=== PATIENT | female | born 1940 | race Caucasian/White ===

== ENCOUNTER 2018-07-03 14:17 | Emergency (ER) | payer MEDICARE ==
[~2018-07-03] VITALS: Ht 165.1 cm; Wt 75.0 kg
[2018-07-03 14:18] VITALS: BP 172/76
[2018-07-03] MEDS ORDERED: CLON0.5T8 PO (14:28)
[2018-07-03] MEDS ORDERED: APAP325T4 PO (14:28)
[2018-07-03] MEDS ORDERED: PARO40TA2 PO (14:28)
[2018-07-03] MEDS ORDERED: METF-839 PO (14:28)
[2018-07-03] MEDS ORDERED: HYDR25TAB PO (14:28)
[2018-07-03] MEDS ORDERED: GLIM2TAB PO (14:28)
[2018-07-03] MEDS ORDERED: ASPI81TA85 PO (14:29)
--- NOTE | 2018-07-03 15:01 | REP ---
NASAL BONES, FOUR VIEWS: HISTORY: Trauma. There is no acute fracture or bone lesion. The sinuses are clear. IMPRESSION: There is no acute fracture or bone lesion. Electronically Signed by Jovanni Flanagan MD 07/03/2018 03:06 P
== END 2018-07-03 15:57 | disposition home or self-care (01) ==
LOC: M ED 14:17
DX: S00.33XA Contusion of nose, initial encounter (principal); W01.198A Fall on same level from slipping, tripping and stumbling with subsequent striking against other object, initial encounter; Y92.410 Unspecified street and highway as the place of occurrence of the external cause; Y93.9 Activity, unspecified; Y99.8 Other external cause status; R26.89 Other abnormalities of gait and mobility; I10 Essential (primary) hypertension; E11.9 Type 2 diabetes mellitus without complications; F32.9 Major depressive disorder, single episode, unspecified; F17.210 Nicotine dependence, cigarettes, uncomplicated; Z85.3 Personal history of malignant neoplasm of breast; Z88.2 Allergy status to sulfonamides; Z79.899 Other long term (current) drug therapy; Z79.82 Long term (current) use of aspirin

== ENCOUNTER → 2018-12-09 | Outpatient (CLI) | payer MEDICARE ==
[~2018-12-09] MED LIST: APAP325T4 PO; ASPI81TA85 PO; CLON0.5T8 PO; GLIM2TAB PO; HYDR25TAB PO; METF-839 PO; PARO40TA2 PO
--- NOTE | 2018-12-09 15:12 | REP ---
Clinical: Back pain. Technique: AP, lateral, bilateral oblique and coned-down views of the lumbosacral spine. Findings: Advanced multilevel degenerative disc osteophyte complex is appreciated throughout the visualized lower thoracic and lumbosacral spine. Findings include bridging osteophytes, endplate sclerosis, disc space narrowing, and hypertrophic facet changes. No acute fracture / compression injury or subluxation. Impression: Advanced multilevel degenerative spondylosis. Electronically Signed by Dennis Bhandari MD 12/09/2018 03:04 P
== END ==
LOC: M WUC 14:09
PROVIDERS: ATTEND Nurse Practitioner Family
DX: M54.5 Low back pain (principal)

== ENCOUNTER → 2018-12-19 | Outpatient (REF) | payer MEDICARE ==
[2018-12-19 17:48] LABS: BASO % 0.3 % (0.0-1.0); EOS # 0.1 10^3/uL (0.0-0.50); EOS % 0.7 % (0.0-3.0); HEMATOCRIT 41.2 % (36.0-47.0); HEMOGLOBIN 13.6 g/dl (12.0-15.5); LYMPH # 2.5 10^3/uL (1.5-4.5); LYMPH % 32.7 % (24.0-44.0); MEAN CORPUSCULAR HEMOGLOBIN 31.2 pg (27.0-33.0); MEAN CORPUSCULAR VOLUME 94.5 fl (80.0-96.0); MONO # 0.5 10^3/uL (0.0-0.8); MONO % 7.1 % (0.0-5.0); NEUTROPHILS # 4.5 10^3/uL (1.8-7.7); NEUTROPHILS % 59.1 % (36.0-66.0); PLATELET COUNT, AUTOMATED 244 10^3/uL (150-450); RED BLOOD COUNT 4.36 10^6/uL (4.00-5.40); WHITE BLOOD COUNT 7.7 10^3/uL (4.0-10.0)
[2018-12-19 17:49] LABS: ALT/SGPT 15 U/L (12-78); BILIRUBIN,TOTAL 0.2 MG/DL (0.2-1.0); BLOOD UREA NITROGEN 11 MG/DL (7-18); CALCIUM LEVEL 9.2 MG/DL (8.8-10.2); CARBON DIOXIDE LEVEL 30 MEQ/L (21-32); CHLORIDE LEVEL 100 MEQ/L (98-107); CHOLESTEROL LEVEL 216 MG/DL (<200); CHOLESTEROL RISK RATIO 3.724 (<5); GLOMERULAR FILTRATION RATE > 60.0 (>39); GLUCOSE, FASTING 75 MG/DL (70-100); HDL CHOLESTEROL 58 MG/DL (>40); LDL CHOLESTEROL 133 MG/DL (<100); NON-HDL-C 158 MG/DL; POTASSIUM SERUM 3.7 MEQ/L (3.5-5.1); SODIUM LEVEL 136 MEQ/L (136-145); TOTAL PROTEIN 6.7 GM/DL (6.4-8.2); TRIGLYCERIDES LEVEL 125 MG/DL (<150)
[2018-12-19 18:42] LABS: HEMOGLOBIN A1c 6.1 %
== END ==
LOC: M LABDRAW1 16:49
PROVIDERS: ATTEND Nurse Practitioner Family
DX: E78.5 Hyperlipidemia, unspecified (principal); I10 Essential (primary) hypertension

== ENCOUNTER 2019-01-05 20:37 | Emergency (ER) | payer MEDICARE ==
[~2019-01-05] VITALS: Ht 165.1 cm; Wt 72.7 kg
[2019-01-05 22:07] LABS: BASO % 0.1 % (0.0-1.0); EOS % 0.1 % (0.0-3.0); HEMATOCRIT 39.9 % (36.0-47.0); HEMOGLOBIN 13.4 g/dl (12.0-15.5); LYMPH # 1.1 10^3/uL (1.5-4.5); LYMPH % 8.2 % (24.0-44.0); MEAN CORPUSCULAR HEMOGLOBIN 31.5 pg (27.0-33.0); MEAN CORPUSCULAR HGB CONC 33.6 g/dl (32.0-36.5); MEAN CORPUSCULAR VOLUME 93.9 fl (80.0-96.0); MONO # 1.2 10^3/uL (0.0-0.8); MONO % 8.6 % (0.0-5.0); NEUTROPHILS # 11.4 10^3/uL (1.8-7.7); NEUTROPHILS % 82.6 % (36.0-66.0); PLATELET COUNT, AUTOMATED 212 10^3/uL (150-450); RED BLOOD COUNT 4.25 10^6/uL (4.00-5.40); WHITE BLOOD COUNT 13.8 10^3/uL (4.0-10.0)
[2019-01-05 22:31] LABS: BLOOD UREA NITROGEN 16 MG/DL (7-18); CALCIUM LEVEL 9.3 MG/DL (8.8-10.2); CARBON DIOXIDE LEVEL 31 MEQ/L (21-32); CHLORIDE LEVEL 101 MEQ/L (98-107); CREATININE FOR GFR 0.64 MG/DL (0.55-1.30); GLOMERULAR FILTRATION RATE > 60.0 (>39); GLUCOSE, FASTING 149 MG/DL (70-100); POTASSIUM SERUM 3.5 MEQ/L (3.5-5.1); SODIUM LEVEL 138 MEQ/L (136-145)
[2019-01-05] MEDS ORDERED: ATOR1TAB21 PO (22:37)
[2019-01-05 23:13] LABS: CK-MB VALUE MASS < 1.0 NG/ML (<3.6); CPK CREATINE PHOSPHOKINASE 37 U/L (26-192); TROPONIN I < 0.02 NG/ML (< 0.10)
[2019-01-05] MEDS ORDERED: DEBR6.5S4 OTIC (23:49)
[2019-01-05] MEDS ORDERED: MACR100C43 PO (23:49)
[2019-01-06] MEDS ORDERED: NITROFURANTOIN (MACROBID) 100 MG CAP PO ONE
[2019-01-06 00:26] VITALS: BP 150/70
--- NOTE | 2019-01-06 08:09 | ECGEPIP ---
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
== END 2019-01-06 00:05 | disposition home or self-care (01) ==
LOC: M ED 20:37
DX: F41.0 Panic disorder [episodic paroxysmal anxiety] (principal); N39.0 Urinary tract infection, site not specified; H61.22 Impacted cerumen, left ear; F41.1 Generalized anxiety disorder; Z72.0 Tobacco use; Z79.82 Long term (current) use of aspirin; Z79.84 Long term (current) use of oral hypoglycemic drugs; Z79.899 Other long term (current) drug therapy; Z88.2 Allergy status to sulfonamides

== ENCOUNTER → 2019-09-24 | Outpatient (CLI) | payer MEDICARE ==
[~2019-09-24] MED LIST changes: +ATOR1TAB21 PO; +CLON0.5T2 PO; -CLON0.5T8 PO; +DEBR6.5S4 OTIC; -GLIM2TAB PO; +GLIM2TAB4 PO; +MACR100C43 PO
--- NOTE | 2019-09-24 15:43 | REPPI ---
LUMBOSACRAL SPINE, FIVE VIEWS: Five views of the lumbosacral spine are performed. No compression fracture or malalignment is seen. The lateral view is somewhat limited due to mild obliquity. There is moderate diffuse spurring. There is moderate diffuse disc space narrowing and subchondral sclerosis. There is sclerosis and spurring at the posterior facet joints diffusely. Posterior elements appear intact. IMPRESSION: Moderate diffuse degenerative changes with no definite fracture or dislocation. No change since the prior study of 12/09/2018. Electronically Signed by Norbert Naik MD 09/24/2019 04:15 P
== END ==
LOC: M PLAIMG 14:56
PROVIDERS: ATTEND Physician Assistant
DX: M51.37 Other intervertebral disc degeneration, lumbosacral region (principal); M25.78 Osteophyte, vertebrae; E11.9 Type 2 diabetes mellitus without complications
CPT/HCPCS: 72110; G0463

== ENCOUNTER → 2019-09-24 | Outpatient (REF) | payer MEDICARE | LOC: M SFHCPLAZ 14:47 | PROVIDERS: ATTEND Physician Assistant | DX: E11.9 Type 2 diabetes mellitus without complications (principal) ==

== ENCOUNTER → 2019-12-29 | Outpatient (REF) | payer MEDICARE ==
[~2019-12-29] MED LIST changes: -ASPI81TA85 PO; +ASPI81TA86 PO
[2020-02-15 21:58] LABS: HEMATOCRIT 43.9 % (36.0-47.0); HEMOGLOBIN 14.1 g/dl (12.0-15.5); MEAN CORPUSCULAR HEMOGLOBIN 30.9 pg (27.0-33.0); MEAN CORPUSCULAR HGB CONC 32.1 g/dl (32.0-36.5); MEAN CORPUSCULAR VOLUME 96.3 fl (80.0-96.0); PLATELET COUNT, AUTOMATED 261 10^3/uL (150-450); RED BLOOD COUNT 4.56 10^6/uL (4.00-5.40); WHITE BLOOD COUNT 9.4 10^3/uL (4.0-10.0)
[2020-02-22 04:54] LABS: BLOOD UREA NITROGEN 12 MG/DL (7-18); CALCIUM LEVEL 9.5 MG/DL (8.8-10.2); CARBON DIOXIDE LEVEL 31 MEQ/L (21-32); CHLORIDE LEVEL 101 MEQ/L (98-107); CREATININE FOR GFR 0.53 MG/DL (0.55-1.30); FREE T4 0.87 NG/DL (0.76-1.46); GLOMERULAR FILTRATION RATE > 60.0 (>39); GLUCOSE, FASTING 60 MG/DL (70-100); SODIUM LEVEL 138 MEQ/L (136-145); VITAMIN B12 LEVEL 298 PG/ML (247-911)
== END ==
LOC: M LABSMT 13:06
PROVIDERS: ATTEND Physician Assistant
DX: R41.3 Other amnesia (principal); E11.9 Type 2 diabetes mellitus without complications

== ENCOUNTER → 2020-06-10 | Outpatient (CLI) | payer MEDICARE ==
[~2020-06-10] MED LIST changes: +BUSP1TAB PO; +DONE10TA90 PO; +HYDR-3490 PO; -HYDR25TAB PO; +OMEP40CA97 PO; +PARO10TA3 PO; +ZOFR4TAB16 PO
[2020-06-10 14:42] LABS: THYROID STIMULATING HORMONE 4.06 uIU/ML (0.358-3.740)
[2020-06-10 14:43] LABS: FOLATE 10.7 NG/ML
[2020-06-18 14:09] LABS: VITAMIN B1 LEVEL WHOLE BLOOD 136.5 nmol/L (66.5-200.0); VITAMIN B6,PYRIDOXAL PHOSPHATE 7.5 ug/L (2.0-32.8); VITAMIN E(ALPHA TOCOPHEROL) 6.1 mg/L (9.0-29.0); VITAMIN E(GAMMA TOCOPHEROL) 0.8 mg/L (0.5-4.9)
== END ==
LOC: M PLALAB 12:02
PROVIDERS: ATTEND Psychiatry & Neurology Neurology
DX: D51.9 Vitamin B12 deficiency anemia, unspecified (principal); E03.9 Hypothyroidism, unspecified

== ENCOUNTER 2020-06-19 18:58 | Emergency (ER) | payer MEDICARE ==
[~2020-06-19] VITALS: Ht 165.1 cm; Wt 62.1 kg
[~2020-06-19 18:58] MED LIST changes: -BUSP1TAB PO; -DONE10TA90 PO; -OMEP40CA97 PO; -PARO10TA3 PO; -ZOFR4TAB16 PO
[2020-06-19] MEDS ORDERED: ZOFR4TAB16 PO (19:18)
[2020-06-19] MEDS ORDERED: PARO10TA3 PO (19:18)
[2020-06-19] MEDS ORDERED: BUSP1TAB PO (19:20)
[2020-06-19] MEDS ORDERED: DONE10TA90 PO (19:20)
[2020-06-19] MEDS ORDERED: PANTOPRAZOLE 40MG VIAL (C9113 PER 1) IV ONE (19:45)
[2020-06-19] MEDS ORDERED: NS 1,000 ML IV ONE (19:45)
[2020-06-19] MEDS ORDERED: METAL LOCK LOOP XX ONE (19:52)
--- NOTE | 2020-06-19 20:48 | REPVR ---
PROCEDURE INFORMATION: Exam: XR Chest, 1 View Exam date and time: 06/19/2020 8:21 PM Age: 80 years old Clinical indication: Cough TECHNIQUE: Imaging protocol: XR of the chest Views: 1 view. COMPARISON: No relevant prior studies available. FINDINGS: Lungs: Degree of lung inflation is normal. No evidence of pulmonary edema. No focal consolidation or parenchymal lung mass. Pleural spaces: No pleural effusion or pneumothorax. Heart/Mediastinum: Cardiac silhouette appears normal. No adenopathy or hilar mass. Bones/joints: Osseous structures show no concerning abnormality. Multi-level, age-related thoracic degenerative disc disease is present. Soft tissues: Left axillary surgical clips are present. IMPRESSION: No acute or focal cardiopulmonary process. Electronically signed by: Terry Willson On 06/19/2020 20:48:25 PM
[2020-06-19 20:57] LABS: BASO % 0.1 % (0.0-1.0); EOS % 0.1 % (0.0-3.0); HEMATOCRIT 43.6 % (36.0-47.0); HEMOGLOBIN 14.5 g/dl (12.0-15.5); LYMPH # 1.9 10^3/uL (1.5-5.0); LYMPH % 15.2 % (24.0-44.0); MEAN CORPUSCULAR HGB CONC 33.3 g/dl (32.0-36.5); MEAN CORPUSCULAR VOLUME 90.3 fl (80.0-96.0); MONO % 7.8 % (0.0-5.0); NEUTROPHILS # 9.8 10^3/uL (1.5-8.5); NEUTROPHILS % 76.5 % (36.0-66.0); PLATELET COUNT, AUTOMATED 243 10^3/uL (150-450); RED BLOOD COUNT 4.83 10^6/uL (4.00-5.40)
[2020-06-19 21:01] LABS: WHITE BLOOD COUNT 12.8 10^3/uL (4.0-10.0)
[2020-06-19 21:09] LABS: INR 0.94; PARTIAL THROMBOPLASTIN TIME 26.9 SECONDS (24.2-38.5); PROTHROMBIN TIME 12.8 SECONDS (12.5-14.3)
[2020-06-19 21:32] LABS: ALT/SGPT 18 U/L (12-78); BILIRUBIN,DIRECT 0.1 MG/DL (0.0-0.2); BILIRUBIN,TOTAL 0.5 MG/DL (0.2-1.0); CK-MB VALUE MASS 2.3 NG/ML (<3.6); CPK CREATINE PHOSPHOKINASE 76 U/L (26-192); LIPASE 51 U/L (73-393); MB/CK RELATIVE INDEX 3.02 (< OR =4); TOTAL PROTEIN 6.9 GM/DL (6.4-8.2); TROPONIN I < 0.02 NG/ML (< 0.10)
[2020-06-19] MEDS ORDERED: OMEP40CA97 PO (21:53)
[2020-06-19 22:23] VITALS: BP 155/67
--- NOTE | 2020-06-21 08:41 | ECGEPIP ---
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
== END 2020-06-19 22:25 | disposition home or self-care (01) ==
LOC: M ED 18:58
DX: K21.9 Gastro-esophageal reflux disease without esophagitis (principal); E11.9 Type 2 diabetes mellitus without complications; I10 Essential (primary) hypertension; E78.5 Hyperlipidemia, unspecified; F41.9 Anxiety disorder, unspecified; F32.9 Major depressive disorder, single episode, unspecified; F17.200 Nicotine dependence, unspecified, uncomplicated; Z79.84 Long term (current) use of oral hypoglycemic drugs; Z79.899 Other long term (current) drug therapy; Z88.2 Allergy status to sulfonamides
CPT/HCPCS: 71045; 80047; 80076; 81001; 82550; 82553; 83690; 84484; 85025; 85610; 85730; 93005; 96361; 96374; 99284; C9113

== ENCOUNTER 2020-06-26 14:03 | Emergency (ER) | payer MEDICARE ==
[~2020-06-26] VITALS: Ht 165.1 cm; Wt 59.1 kg
[~2020-06-26 14:03] MED LIST changes: +BUSP1TAB PO; +DONE10TA90 PO; +OMEP40CA97 PO; +PARO10TA3 PO; +ZOFR4TAB16 PO
--- OUTSIDE RECORDS SUMMARY | 2020-06-26 14:11 | CCD ---
Author Author [facility] Organization [facility] Address Unknown Phone Unavailable Care Team Providers Care Circular Ripsaw Operator Name Role Phone Ольга Vasques Unavailable PROBLEMS Type Condition ICD9-CM Code [id number] Code Onset Dates Condition S tatus SNOMED Code Notes Problem Cystocele with incomplete uterovaginal prolapse N8 1.2 Active 231365563 Problem Personal history of breast cancer Z85.3 Active 780977826 Problem Tobacco use disorder F17.200 Active 728700002 Problem Essential hypertension I10 Active 07419899 Problem Hyperlipidemia, unspecified hyperlipidemia type E7 8.5 Active 18165296 Problem Type 2 diabetes mellitus wit hout complication, without long-term current use of insulin E11.9 Active 008296593 Problem Lumbago with sciatica, left side M54.42 Active 700464390 Problem Other chronic pain G89.29 Active 14534548 Problem Unsteady gait R26.81 Active 33614100 Problem Lumbago with sciatica, right side M54.41 Active 749603952 Problem Depression, unspecified depression type F32.9 Active 84089422 Problem Panic attacks F41.0 Active 044394210 Problem Anxiety F41.9 Active 84604076 Problem Nicotine dependence, cigarettes, uncomplicated F17 .210 Active 92401599 ALLERGIES Allergen (clinical drug ingredient) Drug/Non Drug Allergy do cumented on EMR Reaction Allergy Type Onset Date Status Sulfa (for allergy use only) white around lips Drug Aller gy Active ENCOUNTERS from 1940 to 2020-05-24 Encounter Location Date Provider Diagnosis [address] [address] May, Ольга Vasques IMMUNIZATIONS No Information SOCIAL HISTORY Tobacco Use: Social History Observation Description Date Details (start date - stop date) Current Smoker Sex Assigned At : Social History Observation Description Sex Assigned At Unknown Education: Question Answer Notes Level of Education: High School Audit Question Answer Notes Total Score: 0 Interpretation: Alcohol Education Language: Question Answer Notes Languages spoken: Solomon Islander Jewish: Question Answer Notes Jewish 33 None Sexual Hx: Question Answer Notes Had sex in the last 12 months (vaginal, oral, or anal)? No LMP: hyster Have you ever had an STD? No Drug and Alcohol Question Answer Notes Total Score: 0 Interpretation: No problems reported Tobacco Use: Question Answer Notes Are you a: current smoker Patient counseled on the dangers of tobacco use and urged to quit: 10/07/2018 How many cigarettes a day do you smoke? 11-20 Are you interested in quitting? Not ready to quit Counseled the patient on smoking effects, education provided 10/07/2018 REASON FOR REFERRAL No Information VITAL SIGNS No information MEDICATIONS Medication SIG (Take, Route, Frequency, Duration) Notes Start Da te End Date Status Glimepiride 2 MG TAKE ONE TABLET BY MOUTH ONC E DAILY WITH FIRST MAIN MEAL OF THE DAY Oral Once a day for 30 Days Active Test Strips - as directed Dx: E11.9 3 times a day for 30 Days Jun, Active Hydrochlorothiazide 25 MG TAKE ONE TABLET BY MOUTH KAYLEY RY DAY Oral Daily for 30 Days Active BusPIRone HCl 7.5 MG 1 tablet Orally twice a day as needed for 3 0 Days May, Active Blood Glucose Test - as directed In Vitro three times a day for 30 days Jun, Active Ibuprofen 600 MG TAKE ONE TABLET BY MOUTH THR EE TIMES A DAY NEEDED WITH FOOD OR MILK Oral Not-Taking Atorvastatin Calcium 20 MG 1 tablet Orally Once a day for 90 Active Metformin HCl 500 MG TAKE ONE TABLET BY MOUTH TWI CE A DAY WITH MEALS Oral twice a day for 90 day(s) Active Aspir-81 Active Clonazepam 0.5 MG (Schedule IV Drug) TAKE ONE TABLET BY MOUTH THREE TIMES A DAY NEEDED MAXIMUM DAILY DOSE 3 Oral three times a day as needed for 30 days Active Debrox 6.5 % 5 drops into affected ear Otic Twice a day for 4 day(s) Dec, Not-Taking Tylenol 325 MG 1 tablet as needed Orally every 4 hrs Active Nicotine 21 MG/24HR 1 patch to skin Transdermal Once a day for 3 0 day(s) May, Active Paroxetine HCl 40 MG 1 tablet in the morning Oral Once a day (with the 10mg tablet for total of 50mg) for 30 days Active PROCEDURES No Information RESULTS No Results REASON FOR VISIT REFERRAL MEDICAL (GENERAL) HISTORY Type Description Date Medical History depression Medical History dm2 Medical History htn Medical History breast cancer, left mastectomy Medical History Mammogram 12/2018: BI-RADS 2 Medical History Colonoscopy-2013 Medical History Panic attacks Surgical History left mastectomy Surgical History hysterectomy, total with USO pt not sure which ovary she has Goals Section No Information Health Concerns No Information MEDICAL EQUIPMENT No Information MENTAL STATUS No Information FUNCTIONAL STATUS No Information ASSESSMENTS No Information PLAN OF TREATMENT Medication Medication Name Sig Start Date Stop Date BusPIRone HCl 7.5 MG 1 tablet Orally twice a day as needed f or 30 Days May, Hydrochlorothiazide 25 MG TAKE ONE TABLET BY MOUTH KAYLEY RY DAY Oral Daily for 30 Days Clonazepam 0.5 MG (Schedule IV Drug) TAKE ONE TABLET BY MOUTH THREE TIMES A DAY NEEDED MAXIMUM DAILY DOSE 3 Oral three times a day as needed for 30 days Metformin HCl 500 MG TAKE ONE TABLET BY MOUTH TWI CE A DAY WITH MEALS Oral twice a day for 90 day(s) Atorvastatin Calcium 20 MG 1 tablet Orally Once a day for 90 Glimepiride 2 MG TAKE ONE TABLET BY MOUTH ONC E DAILY WITH FIRST MAIN MEAL OF THE DAY Oral Once a day for 30 Days Paroxetine HCl 40 MG 1 tablet in the morning Oral Once a day (with the 10mg tablet for total of 50mg) for 30 days Next Appt Details Provider Name:Ольга Vasques, 2020-07-21 02 :45:00 PM, [address] [place], [address], Insurance Providers Payer Name Payer Address Payer Phone Insured Name Patient Relati onship to Insured Coverage Start Date Coverage End Date MEDICARE COMPLETE [employer] [address] [address] [facility] [phone] JAIMEE GUERRERO self
--- OUTSIDE RECORDS SUMMARY | 2020-06-26 14:11 | CCD | Continuity of Care Document ---
Author Cecelia Valdivia M.D. Organization Unknown Address [address] [place] [address] Phone [phone] Care Team Providers Care Director Vaccine Name Role Phone LayoFlipoe CACHORRO AUTM [phone] Problems Active Problems Provider Date Diffuse Lewy body disease Bucky Cline M.D. Onset: 021 Parkinsonism with calcification of basal ganglia Bucky Cline M.D. Onset: 06/09/2020 Social History Type Date Description Comments Sex Unknown Tobacco Use Start: Unknown Patient has never smoked Allergies, Adverse Reactions, Alerts Description No Known Drug Allergies Medications Active Medications SIG Qnty Indications Ordering Provide r Date Donepezil HCL 10mg Tablets half a tab by mouth every morning for 2 weeks, then 1 by mouth qam. 30tabs Bucky Cline M.D. 06/09/2020 Immunizations Description No Information Available Vital Signs Date Vital Result Comment 06/09/2020 11:39am BP Systolic 120 mmHg BP Diastolic 80 mmHg Heart Rate 78 /min Respiratory Rate 14 /min Height 65 inches 5'5" Weight 150.00 lb BMI (Body Mass Index) 25.0 kg/m2 [place] Body Weight 125 lb Results Test Acquired Date Facility Test Result H/L Range Note Laboratory test finding 06/10/2020 [facility] Thyroid Stimulating Hormone 4.060 uIU/ML High 0.358-3.740 Vitamin B12 & Folate 06/10/2020 [facility] Vitamin B12 Level 548 pg/mL Normal 1 Folate 10.7 NG/ML Normal 2 1 VITAMIN B12 NORMAL RANGE NORMAL 247 - 911 PG/ML INDETERMINATE 211 - 246 PG/ML DEFICIENT LESS THAN 211 PG/ML 2 FOLATE NORMAL RANGE NORMAL GREATER THAN 5.4 NG/ML INDETERMINATE 3.4-5.4 NG/ML DEFICIENT LESS THAN 3.4 NG/ML Procedures Description No Information Available Medical Devices Description No Information Available Encounters Type Date Location Provider Dx Diagnosis Office Visit 06/09/2020 11:00a [facility] Eli Winter G31.83 Dementia with Lewy bodies 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 Plan of Treatment Future Appointment(s):* 07/21/2020 12:45 pm - Bucky Cline M.D. at [facility] Functional Status Description No Information Available Mental Status Description No Information Available Referrals Refer to Reason for Referral Status Appt Bucky Cam M.D. Created [facility] [place] [address] [phone]
--- OUTSIDE RECORDS SUMMARY | 2020-06-26 14:11 | CCD ---
Author Author [facility] Organization [facility] Address Unknown Phone Unavailable Care Team Providers Care Managing Manager Name Role Phone Ольга Vasques Unavailable PROBLEMS Type Condition ICD9-CM Code [id number] Code Onset Dates Condition S tatus SNOMED Code Notes Problem Cystocele with incomplete uterovaginal prolapse N8 1.2 Active 511191646 Problem Personal history of breast cancer Z85.3 Active 895412168 Problem Tobacco use disorder F17.200 Active 542409915 Problem Essential hypertension I10 Active 65584620 Problem Hyperlipidemia, unspecified hyperlipidemia type E7 8.5 Active 59154989 Problem Type 2 diabetes mellitus wit hout complication, without long-term current use of insulin E11.9 Active 918145869 Problem Lumbago with sciatica, left side M54.42 Active 260441990 Problem Other chronic pain G89.29 Active 03255640 Problem Unsteady gait R26.81 Active 71953327 Problem Lumbago with sciatica, right side M54.41 Active 853144784 Problem Depression, unspecified depression type F32.9 Active 06321790 Problem Panic attacks F41.0 Active 042845647 Problem Anxiety F41.9 Active 49929177 Problem Nicotine dependence, cigarettes, uncomplicated F17 .210 Active 41629705 ALLERGIES Allergen (clinical drug ingredient) Drug/Non Drug Allergy do cumented on EMR Reaction Allergy Type Onset Date Status Sulfa (for allergy use only) white around lips Drug Aller gy Active ENCOUNTERS from 1940 to 2020-05-26 Encounter Location Date Provider Diagnosis [address] [address] May, Ольга Vasques IMMUNIZATIONS No Information SOCIAL HISTORY Tobacco Use: Social History Observation Description Date Details (start date - stop date) Current Smoker Sex Assigned At : Social History Observation Description Sex Assigned At Unknown Education: Question Answer Notes Level of Education: High School Audit Question Answer Notes Total Score: 0 Interpretation: Alcohol Education Language: Question Answer Notes Languages spoken: New Zealander Rastafarian: Question Answer Notes Rastafarian 33 None Sexual Hx: Question Answer Notes [...] Information RESULTS No Results REASON FOR VISIT referral MEDICAL (GENERAL) HISTORY Type Description Date Medical [...] Name:Ольга Vasques, 2020-07-21 02 :45:00 PM, [address] [place], [address], Insurance Providers Payer Name Payer Address Payer Phone Insured Name Patient Relati onship to Insured Coverage Start Date Coverage End Date MEDICARE COMPLETE UNITED [employer]CARE [address] [address] [facility] [phone] JAIMEE GUERRERO self
--- OUTSIDE RECORDS SUMMARY | 2020-06-26 14:12 | CCD ---
Author Author [facility] Organization [facility] Address Unknown Phone Unavailable Care Team Providers Care Exterminator Helper Name Role Phone Ольга Vasques Unavailable PROBLEMS Type Condition ICD9-CM Code [id number] Code Onset Dates Condition S tatus SNOMED Code Notes Problem Cystocele with incomplete uterovaginal prolapse N8 1.2 Active 087447491 Problem Personal history of breast cancer Z85.3 Active 998140174 Problem Tobacco use disorder F17.200 Active 634680481 Problem Essential hypertension I10 Active 29863398 Problem Hyperlipidemia, unspecified hyperlipidemia type E7 8.5 Active 00059857 Problem Type 2 diabetes mellitus wit hout complication, without long-term current use of insulin E11.9 Active 432480557 Problem Lumbago with sciatica, left side M54.42 Active 955045206 Problem Other chronic pain G89.29 Active 15297649 Problem Unsteady gait R26.81 Active 57883010 Problem Lumbago with sciatica, right side M54.41 Active 786064091 Problem Depression, unspecified depression type F32.9 Active 87296555 Problem Panic attacks F41.0 Active 869417559 Problem Anxiety F41.9 Active 40760379 Problem Nicotine dependence, cigarettes, uncomplicated F17 .210 Active 87348661 ALLERGIES Allergen (clinical drug ingredient) Drug/Non Drug Allergy do cumented on EMR Reaction Allergy Type Onset Date Status Sulfa (for allergy use only) white around lips Drug Aller gy Active ENCOUNTERS from 1940 to 2020-05-23 Encounter Location Date Provider Diagnosis [facility] [address] [place] [address] Apr, Ольга Layo Lumbago with sciatica, right side M54.41 ; Pain in left hip M25.552 ; Pain in right hip M25.551 ; Type 2 diabetes mellitus without complication, without long- term current use of insulin E11.9 ; Hyperlipidemia, unspecified hyperlipidemia type E78.5 ; Panic attacks F41.0 ; Unsteady gait R26.81 ; Depression, unspecified depression type F32.9 ; Essential hypertension I10 ; Forgetfulness R68.89 and Nicotine dependence, cigarettes, uncomplicated F17.210 IMMUNIZATIONS No Information SOCIAL HISTORY Tobacco Use: Social History Observation Description Date Details (start date - stop date) Current Smoker Sex Assigned At : Social History Observation Description Sex Assigned At Unknown Education: Question Answer Notes Level of Education: High School Audit Question Answer Notes Total Score: 0 Interpretation: Alcohol Education Language: Question Answer Notes Languages spoken: Monegasque Alevism: Question Answer Notes Alevism 33 None Sexual Hx: Question Answer Notes [...] REASON FOR REFERRAL No Information VITAL SIGNS Weight 153.1 lbs Apr, Height 65" in Apr, BMI 25.47 kg/m2 Apr, Heart Rate 73 /min Apr, Respiratory Rate 18 /min Apr, Temperature 97.9 degrees Fahrenheit Apr, Oximetry 95 Apr, Blood pressure systolic 148 mm Hg Apr, Blood pressure diastolic 82 mm Hg Apr, MEDICATIONS Medication SIG (Take, Route, Frequency, Duration) [...] Information RESULTS No Results REASON FOR VISIT Follow up MEDICAL (GENERAL) HISTORY Type Description Date Medical [...] No Information FUNCTIONAL STATUS No Information ASSESSMENTS Encounter Date Diagnosis Assessment Notes Treatment Notes Treatm ent Clinical Notes Apr, Lumbago with sciatica, right side (ICD-10 - M54. 41) chronic, suggested patient use heat and continue Jordan [facility] Apr, Pain in left hip (ICD-10 - M25.552) will get x-ray of hips Apr, Pain in right hip (ICD-10 - M25.551) Apr, Type 2 diabetes mellitus wit hout complication, without long-term current use of insulin (ICD-10 - E11.9) controlled on metformin, will check a1c prior to next visit Apr, Hyperlipidemia, unspecified hyperlipidemia type (ICD-10 - E78.5) will check cholesterol prior to next appointment, she should continue her atorvastatin Apr, Panic attacks (ICD-10 - F41.0) on clonazepam, stable Apr, Unsteady gait (ICD-10 - R26.81) will refer patient to PT for gait training/strenthening Apr, Depression, unspecified depression type (ICD-10 - F32.9) will increase patient's paxil to 50mg Apr, Essential hypertension (ICD-10 - I10) Per JNC 8 guidelines, goal BP < 140/90 (150/90 if age >60), is meeting goal on current regimen. Advised heart-healthy diet, sodium restriction Apr, Forgetfulness (ICD-10 - R68.89) Patient is going to try to control her anxiety and see if that makes a difference with her forgetfullness. we discussed a referral to neurology but patient and her son decided against it at this time Apr, Nicotine dependence, cigarettes, uncompl icated (ICD-10 - F17.210) Smoking cessation advised for 5 min. Patient not willing to quit or cut back. I discussed with patient, in every day terms, the health effects associated with smoking. These included: cancer (lung, colon, head and neck), stroke, heart disease, gum infection, and chronic lung disease. Patient verbalized understanding. I will continue to encourage cessation. PLAN OF TREATMENT Medication Medication Name Sig Start Date Stop Date BusPIRone HCl 7.5 MG 1 tablet Orally twice a day as needed f or 30 Days May, Hydrochlorothiazide 25 MG TAKE ONE TABLET BY MOUTH KAYLEY DAY Oral Daily for 30 Days Clonazepam [...] for total of 50mg) for 30 days Treatment Notes Assessment Notes Clinical Notes Lumbago with sciatica, right side chroni c, suggested patient use heat and continue Jordan Back and Body Pain in left hip will get x-ray of hi ps Type 2 diabetes mellitus without complic ation, without long-term current use of insulin controlled on metformin, artis herrera check a1c prior to next visit Hyperlipidemia, unspecified hyperlipidemia type will check cholesterol prior to next appointment, she should continue her atorvastatin Panic attacks on clonazepam, stabl e Unsteady gait will refer patient t o PT for gait training/strenthening Depression, unspecified depression type will increase patient's paxil to 50mg Essential hypertension Per JNC 8 guideli romi, goal BP < 140/90 (150/90 if age >60), is meeting goal on current regimen. Advised heart-healthy diet, sodium restriction Forgetfulness Patient is going to try to control her anxiety and see if that makes a difference with her forgetfullness. we discussed a referral to neurology but patient and her son decided against it at this time Nicotine dependence, cigarettes, uncomplicated Smoking cessation advised for 5 min. Patient not willing to quit or cut back. I discussed with patient, in every day terms, the health effects associated with smoking. These included: cancer (lung, colon, head and neck), stroke, heart disease, gum infection, and chronic lung disease. Patient verbalized understanding. I will continue to encourage cessation. Future Test Test Name Order Date HEMOGLOBIN A1c [id number] Basic Metabolic Profile (BMP) 20200721 LIPID PANEL (CARDIAC RISK) 20200721 PLZ HIPS BILAT 2 VIEW W/ AP PELVIS [id number] Next Appt Details 3 Months Reason: Provider Name:Ольга Vasques, 2020-07-21 02 :45:00 PM, [address] [place], [address], Insurance Providers Payer Name Payer Address Payer Phone Insured Name Patient Relati onship to Insured Coverage Start Date Coverage End Date MEDICARE COMPLETE [facility] [address] [address] [facility] [id number] JAIMEE GUERRERO self
--- OUTSIDE RECORDS SUMMARY | 2020-06-26 14:12 | CCD ---
Author Author [facility] Organization [facility] Address Unknown Phone Unavailable Care Team Providers Care Controlled Atmospheric Furnace Brazer Name Role Phone Layo, Ольга Unavailable PROBLEMS Type Condition ICD9-CM Code OZJ90-OC Code Onset Dates Condition S tatus SNOMED Code Notes Problem Cystocele with incomplete uterovaginal prolapse N8 1.2 Active 493517262 Problem Personal history of breast cancer Z85.3 Active 779120395 Problem Tobacco use disorder F17.200 Active 298993234 Problem Essential hypertension I10 Active 63997894 Problem Hyperlipidemia, unspecified hyperlipidemia type E7 8.5 Active 00312983 Problem Type 2 diabetes mellitus wit hout complication, without long-term current use of insulin E11.9 Active 727052556 Problem Lumbago with sciatica, left side M54.42 Active 687944272 Problem Other chronic pain G89.29 Active 97909872 Problem Unsteady gait R26.81 Active 97085978 Problem Lumbago with sciatica, right side M54.41 Active 095299854 Problem Depression, unspecified depression type F32.9 Active 31164483 Problem Panic attacks F41.0 Active 679048813 Problem Anxiety F41.9 Active 71010049 Problem Nicotine dependence, cigarettes, uncomplicated F17 .210 Active 29911317 ALLERGIES Allergen (clinical drug ingredient) Drug/Non Drug Allergy do cumented on EMR Reaction Allergy Type Onset Date Status Sulfa (for allergy use only) white around lips Drug Aller gy Active ENCOUNTERS from 1942 to 2020-05-21 Encounter Location Date Provider Diagnosis [address] [address] May, Ольга Vasques Depression, unspecified depression type F32.9 IMMUNIZATIONS No Information SOCIAL HISTORY Tobacco Use: Social History Observation Description Date Details (start date - stop date) Current Smoker Sex Assigned At : Social History Observation Description Sex Assigned At Unknown Education: Question Answer Notes Level of Education: High School Audit Question Answer Notes Total Score: 0 Interpretation: Alcohol Education Language: Question Answer Notes Languages spoken: [place]ian Hoahaoism: Question Answer Notes Hoahaoism 33 None Sexual Hx: Question Answer Notes [...] Information RESULTS No Results REASON FOR VISIT Talk to Ольга and referral MEDICAL (GENERAL) HISTORY Type Description Date [...] Notes Treatment Notes Treatm ent Clinical Notes May, Depression, unspecified depression type (ICD-10 - F32.9) PLAN OF TREATMENT Medication Medication Name Sig [...] Name:Ольга Vasques, 2020-07-21 02 :45:00 PM, [address] [place], [address], Insurance Providers Payer Name Payer Address Payer Phone Insured Name Patient Relati onship to Insured Coverage Start Date Coverage End Date MEDICARE COMPLETE [employer] [address] [address] [facility] [id number] JAIMEE GUERRERO self
--- OUTSIDE RECORDS SUMMARY | 2020-06-26 14:12 | CCD ---
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 Active 789580035 Problem Personal history of breast cancer Z85.3 Active 766937896 Problem Tobacco use disorder F17.200 Active 404360998 Problem Essential hypertension I10 Active 47533871 Problem Hyperlipidemia, unspecified hyperlipidemia type E7 8.5 Active 19846066 Problem Type 2 diabetes mellitus wit hout complication, without long-term current use of insulin E11.9 Active 693773324 Problem Lumbago with sciatica, left side M54.42 Active 224637889 Problem Other chronic pain G89.29 Active 25424057 Problem Unsteady gait R26.81 Active 33589349 Problem Lumbago with sciatica, right side M54.41 Active 843268971 Problem Depression, unspecified depression type F32.9 Active 81946956 Problem Panic attacks F41.0 Active 544177794 Problem Anxiety F41.9 Active 20092511 Problem Nicotine dependence, cigarettes, uncomplicated F17 .210 Active 05489800 ALLERGIES Allergen (clinical drug ingredient) Drug/Non Drug Allergy do cumented on EMR Reaction Allergy Type Onset Date Status Sulfa (for allergy use only) white around lips Drug Aller gy Active ENCOUNTERS from 1942 to 2020-05-21 Encounter Location Date Provider Diagnosis [id number] [place] [address] Apr, Ольга Vasques Forgetfulness R68.89 IMMUNIZATIONS No Information SOCIAL HISTORY Tobacco Use: Social History Observation Description Date Details (start date - stop date) Current Smoker Sex Assigned At : Social History Observation Description Sex Assigned At Unknown Education: Question Answer Notes Level of Education: High School Audit Question Answer Notes Total Score: 0 Interpretation: Alcohol Education Language: Question Answer Notes Languages spoken: Citizen Of [place] Mandaeism: Question Answer Notes Mandaeism 33 None Sexual Hx: Question Answer Notes [...] Information RESULTS No Results REASON FOR VISIT Forgetting MEDICAL (GENERAL) HISTORY Type Description Date Medical [...] Treatment Notes Treatm ent Clinical Notes Apr, Forgetfulness (ICD-10 - R68.89) PLAN OF TREATMENT Medication Medication Name Sig [...] Name:Ольга Vasques, 2020-07-21 02 :45:00 PM, [address] [place], [address], Insurance Providers Payer Name Payer Address Payer Phone Insured Name Patient Relati onship to Insured Coverage Start Date Coverage End Date MEDICARE COMPLETE [facility] [address] [address] [facility] [id number] JAIMEE GUERRERO self
--- OUTSIDE RECORDS SUMMARY | 2020-06-26 14:12 | CCD ---
Author Author [facility] Organization [facility] Address Unknown Phone Unavailable Care Team Providers Care [employer] Mechanic Name Role Phone Bucky Cline MD Unavailable Unavailable Bucky Cline MD Unavailable Unavailable Bucky Cline MD Unavailable Unavailable Bucky Cline MD Unavailable Unavailable Bucky Cline MD Unavailable Unavailable Bucky Cline MD Unavailable Unavailable Bucky Cline MD Unavailable Unavailable Bucky Cline MD Unavailable Unavailable Bucky Cline MD Unavailable Unavailable Bucky Cline MD Unavailable Unavailable Bucky Cline MD Unavailable Unavailable Bucky Cline MD Unavailable Unavailable Bucky Cline MD Unavailable Unavailable Bucky Cline MD Unavailable Unavailable Bucky Cline MD Unavailable Unavailable Bucky Cline MD Unavailable Unavailable Bucky Cline MD Unavailable Unavailable Bucky Cline MD Unavailable Unavailable Bucky Cline MD Unavailable Unavailable Bucky Cline MD Unavailable Unavailable Bucky Cline MD Unavailable Unavailable Bucky Cline MD Unavailable Unavailable Bucky Cline MD Unavailable Unavailable Bucky Cline MD Unavailable Unavailable Bucky Cline MD Unavailable Unavailable Bucky Cline MD Unavailable Unavailable Bucky Cline MD Unavailable Unavailable Bucky Cline MD Unavailable Unavailable Bucky Cline MD Unavailable Unavailable Bucky Cline MD Unavailable Unavailable Bucky Cline MD Unavailable Unavailable Bucky Cline MD Unavailable Unavailable Bucky Cline MD Unavailable Unavailable Bucky Cline MD Unavailable Unavailable Bucky Cline MD Unavailable Unavailable Bucky Cline MD Unavailable Unavailable Bucky Cline MD Unavailable Unavailable Bucky Cline MD Unavailable Unavailable AliBucky MD Unavailable Unavailable AliBucky MD Unavailable Unavailable AliBucky MD Unavailable Unavailable Ali, Bucky HINOJOSA Unavailable Unavailable Ali, Bucky HINOJOSA Unavailable Unavailable Ali, Bucky HINOJOSA Unavailable Unavailable Ali, Bucky HINOJOSA Unavailable Unavailable Ali, Bucky MD Unavailable Unavailable Ali, Bucky HINOJOSA Unavailable Unavailable AliBucky MD Unavailable Unavailable Ali, Bucky MD Unavailable Unavailable Feola, T Rocio PA Unavailable Unavailable Feola, T Rocio PA Unavailable Unavailable Feola, T Rocio PA Unavailable Unavailable Feola, T Rocio PA Unavailable Unavailable Feola, T Rocio PA Unavailable Unavailable Feola, T Rocio PA Unavailable Unavailable Feola, T Rocio PA Unavailable Unavailable Feola, T Rocio PA Unavailable Unavailable Feola, T Rocio PA Unavailable Unavailable Feola, T Rocio PA Unavailable Unavailable Feola, T Rocio PA Unavailable Unavailable Feola, T Rocio PA Unavailable Unavailable Feola, T Rocio PA Unavailable Unavailable Feola, T Rocio PA Unavailable Unavailable Feola, T Rocio PA Unavailable Unavailable Feola, T Rocio PA Unavailable Unavailable Feola, T Rocio PA Unavailable Unavailable Feola, T Rocio PA Unavailable Unavailable Feola, T Rocio PA Unavailable Unavailable Feola, T Rocio PA Unavailable Unavailable Feola, T Rocio PA Unavailable Unavailable Feola, T Rocio PA Unavailable Unavailable Feola, T Rocio PA Unavailable Unavailable Feola, T Rocio PA Unavailable Unavailable Feola, T Rocio PA Unavailable Unavailable Feola, T Rocio PA Unavailable Unavailable Feola, T Rocio PA Unavailable Unavailable Feola, T Rocio PA Unavailable Unavailable Feola, T Rocio PA Unavailable Unavailable Feola, T Rocio PA Unavailable Unavailable Feola, T Rocio PA Unavailable Unavailable Feola, T Rocio PA Unavailable Unavailable Feola, T Rocio PA Unavailable Unavailable Feola, T Rocio PA Unavailable Unavailable Feola, T Rocio PA Unavailable Unavailable Feola, T Rocio PA Unavailable Unavailable Feola, T Rocio PA Unavailable Unavailable Re-disclosure Warning The records that you are about to access may contain information from federally-assisted alcohol or drug abuse programs. If such information is present, then the following federally mandated warning applies: This information has been disclosed to you from records protected by federal confidentiality rules (42 CFR part 2). The federal rules prohibit you from making any further disclosure of this information unless further disclosure is expressly permitted by the written consent of the person to whom it pertains or as otherwise permitted by 42 CFR part 2. A general authorization for the release of medical or other information is NOT sufficient for this purpose. The Federal rules restrict any use of the information to criminally investigate or prosecute any alcohol or drug abuse patient.The records that you are about to access may contain highly sensitive health information, the redisclosure of which is protected by Article 27-F of the [facility] Public Health law. If you continue you may have access to information: Regarding HIV / AIDS; Provided by facilities licensed or operated by the [facility] Office of Mental Health; or Provided by the [facility] Office for People With Developmental Disabilities. If such information is present, then the following [facility] mandated warning applies: This information has been disclosed to you from confidential records which are protected by state law. State law prohibits you from making any further disclosure of this information without the specific written consent of the person to whom it pertains, or as otherwise permitted by law. Any unauthorized further disclosure in violation of state law may result in a fine or penitentiary sentence or both. A general authorization for the release of medical or other information is NOT sufficient authorization for further disc losure. Allergies and Adverse Reactions Type Description Substance Reaction Status Data Source(s ) Sulfa (for allergy use only) Sulfa (for allergy use only) Vitale lfa (for allergy use only) white around lips Active [facility] ([facility]) Family History Family Member Name Family Member Gender Family Member Status Date o f Status Description Data Source(s) Unknown Unknown Problem [facility] ([facility], [facility]) Encounters Encounter Providers Location Date Indications Data Source(s ) O Attender: Rocio BARONE 021 01:10:54 PM EST - 2020 02:39:09 PM EST [facility] ([facility] ) Office Visit Attender: Bucky Cline MD Main office - [place] 06/09/2020 10:00:00 AM EST [facility] ([facility]) [place] [address] [facility] [address] 05/26/2020 12:00:00 AM EST eCW1 ([facility]) [place] [address] [facility] [address] 05/24/2020 12:00:00 AM EST eCW1 ([facility]) [place] [address] [facility] [address] 05/18/2020 12:00:00 AM EST eCW1 ([facility]) [place] [address] [facility] [address] 05/10/2020 12:00:00 AM EST eCW1 ([facility]) Office Visit, Est Pt., Level 4 PC [address] [place] [address] 04/22/2020 12:00:00 AM EST eCW1 ([facility]) [place] [address] [facility] [address] 04/01/2020 12:00:00 AM EST eCW1 ([facility]) [facility] [address] [facility] [address] 01/21/2020 12:00:00 AM EDT eCW1 ([facility]) [place] [address] [facility] [address] 10/20/2019 12:00:00 AM EDT eCW1 ([facility]) [facility] [address] [facility] [address] 10/08/2019 12:00:00 AM EDT eCW1 ([facility]) [facility] [address] [facility] [address] 09/29/2019 12:00:00 AM EDT eCW1 ([facility]) [facility] [address] [facility] [address] 09/28/2019 12:00:00 AM EDT eCW1 ([facility]) Outpatient [address] [facility] [address] 09/24/2019 12:00:00 AM EDT eCW1 ([facility]) [facility] [address] [address] 09/21/2019 12:00:00 AM EDT eCW1 ([facility]) [address] [address] 06/30/2019 12:00:00 AM EST eCW1 ([facility]) [address] [place] [address] 06/30/2019 12:00:00 AM EST eCW1 ([facility]) [address] [address] 06/23/2019 12:00:00 AM EST eCW1 ([facility]) [address] [address] 06/22/2019 12:00:00 AM EST eCW1 ([facility]) [address] [address] 06/22/2019 12:00:00 AM EST eCW1 ([facility]) [address] [address] 05/28/2019 12:00:00 AM EST eCW1 ([facility]) [address] [address] 05/08/2019 12:00:00 AM EST eCW1 ([facility]) Medications Medication Brand Name Start Date Product Form Dose Route Admi nistrative Instructions Pharmacy Instructions Status Indications Reaction Description Data Source(s) 40 mg 06/20/2020 12:00:00 AM EST capsule,delayed release (DR/EC) 30 TAKE ONE CAPSULE BY MOUTH EVERY DAY TAKE ONE CAPSULE BY MOUTH EVERY DAY SOLD: 06/20/2020 [facility] 4 mg 2020 12:00:00 AM EST tablet 15 TAKE ONE TABLET BY MOUTH THREE TIMES A DAY FOR 5 DAYS TAKE ONE TABLET BY MOUTH THREE TIMES A DAY FOR 5 DAYS SOLD: 2020 [facility] Donepezil hydrochloride 10 MG Oral Tablet Donepezil HCL 06/09/2020 12:00:00 AM EST ORAL active MED[facility] ([facility]) 10 mg 06/09/2020 12:00:00 AM EST tablet 30 TAKE ONE-HALF TABLET BY MOUTH EVERY MORNING FOR 2 WEEKS, THEN TAKE ONE TABLET BY MOUTH EVERY MORNING TAKE ONE- HALF TABLET BY MOUTH EVERY MORNING FOR 2 WEEKS, THEN TAKE ONE TABLET BY MOUTH EVERY MORNING SOLD: 06/09/2020 [facility] 0.5 mg 05/26/2020 12:00:00 AM EST tablet 90 TAKE ONE TABLET BY MOUTH THREE TIMES A DAY NEEDED, MAXIMUM DAILY DOSE = THREE TABLETS TAKE ONE TABLET BY MOUTH THREE TIMES A DAY NEEDED, MAXIMUM DAILY DOSE = THREE TABLETS SOLD: 05/27/2020 [facility] 20 mg 05/26/2020 12:00:00 AM EST tablet 30 TAKE ONE TABLET BY MOUTH EVERY DAY DIRECTED TAKE ONE TABLET BY MOUTH EVERY DAY DIRECTED SOLD: [facility] 7.5 mg 05/20/2020 12:00:00 AM EST tablet 60 TAKE ONE TABLET BY MOUTH TWICE A DAY NEEDED TAKE ONE TABLET BY MOUTH TWICE A DAY NEEDED SOLD: 05/20/2020 [facility] atorvastatin 20 MG Oral Tablet ATORVASTATIN CALCIUM 05/20/2020 1 2:00:00 AM EST tablet 90 TAKE ONE TABLET BY MOUTH EVERY D AY TAKE ONE TABLET BY MOUTH EVERY DAY SOLD: 05/20/2020 [facility] buspirone hydrochloride 7.5 MG Oral Tablet BusPIRone H Cl 7.5 MG BusPIRone HCl 7.5 MG 05/19/2020 12:00:00 AM EST 1.0 {tablet} activ e BusPIRone HCl 7.5 MG eCW1 ([facility]) buspirone hydrochloride 7.5 MG Oral Tablet BusPIRone H Cl 7.5 MG BusPIRone HCl 7.5 MG 05/19/2020 12:00:00 AM EST 1.0 {tablet} activ e BusPIRone HCl 7.5 MG eCW1 ([facility]) buspirone hydrochloride 7.5 MG Oral Tablet BusPIRone H Cl 7.5 MG BusPIRone HCl 7.5 MG 05/19/2020 12:00:00 AM EST 1.0 {tablet} activ e BusPIRone HCl 7.5 MG eCW1 ([facility]) buspirone hydrochloride 7.5 MG Oral Tablet BusPIRone H Cl 7.5 MG BusPIRone HCl 7.5 MG 05/19/2020 12:00:00 AM EST 1.0 {tablet} activ e BusPIRone HCl 7.5 MG eCW1 ([facility]) buspirone hydrochloride 7.5 MG Oral Tablet BusPIRone H Cl 7.5 MG BusPIRone HCl 7.5 MG 05/19/2020 12:00:00 AM EST 1.0 {tablet} activ e BusPIRone HCl 7.5 MG eCW1 ([facility]) Paroxetine Hydrochloride 40 MG Oral Tablet PAROXETINE HCL 04/27/2020 12:00:00 AM EST tablet 30 TAKE ONE TABLET BY MOUTH ONCE A DAY(WITH THE 10MG FOR A TOTAL OF 50MG) TAKE ONE TABLET BY MOUTH ONCE A DAY(WITH THE 10MG FOR A TOTAL OF 50MG) SOLD: 04/27/2020 [facility] Paroxetine Hydrochloride 40 MG Oral Tablet PAROXETINE HCL 04/27/2020 12:00:00 AM EST tablet 30 TAKE ONE TABLET BY MOUTH ONCE A DAY(WITH THE 10MG FOR A TOTAL OF 50MG) TAKE ONE TABLET BY MOUTH ONCE A DAY(WITH THE 10MG FOR A TOTAL OF 50MG) SOLD: 06/13/2020 [facility] Paroxetine Hydrochloride 40 MG Oral Tablet PAROXETINE HCL 04/27/2020 12:00:00 AM EST tablet 30 TAKE ONE TABLET BY MOUTH ONCE A DAY(WITH THE 10MG FOR A TOTAL OF 50MG) TAKE ONE TABLET BY MOUTH ONCE A DAY(WITH THE 10MG FOR A TOTAL OF 50MG) SOLD: 05/22/2020 [facility] glimepiride 2 MG Oral Tablet GLIMEPIRIDE 04/25/2020 12:00:00 AM EST ta blet 30 TAKE ONE TABLET BY MOUTH ONCE DAILY WITH FIRST MAIN MEAL OF THE DAY TAKE ONE TABLET BY MOUTH ONCE DAILY WITH FIRST MAIN MEAL OF THE DAY SOLD: 06/10/2020 [facility] 25 mg 04/25/2020 12:00:00 AM EST tablet 30 TAKE ONE TABLET BY MOUTH EVERY DAY TAKE ONE TABLET BY MOUTH EVERY DAY SOLD: 05/22/2020 [facility] 25 mg 04/25/2020 12:00:00 AM EST tablet 30 TAKE ONE TABLET BY MOUTH EVERY DAY TAKE ONE TABLET BY MOUTH EVERY DAY SOLD: 04/27/2020 [facility] glimepiride 2 MG Oral Tablet GLIMEPIRIDE 04/25/2020 12:00:00 AM EST ta blet 30 TAKE ONE TABLET BY MOUTH ONCE DAILY WITH FIRST MAIN MEAL OF THE DAY TAKE ONE TABLET BY MOUTH ONCE DAILY WITH FIRST MAIN MEAL OF THE DAY SOLD: 04/27/2020 [facility] 25 mg 04/25/2020 12:00:00 AM EST tablet 30 TAKE ONE TABLET BY MOUTH EVERY DAY TAKE ONE TABLET BY MOUTH EVERY DAY SOLD: 06/23/2020 [facility] atorvastatin 20 MG Oral Tablet ATORVASTATIN CALCIUM 04/23/2020 1 2:00:00 AM EST tablet 90 TAKE ONE TABLET BY MOUTH ONCE A DAY TAKE ONE TABLET BY MOUTH ONCE A DAY SOLD: 04/23/2020 [facility] Paroxetine Hydrochloride 10 MG Oral Tablet PAROXETINE HCL 04/23/2020 12:00:00 AM EST tablet 30 TAKE ONE TABLET BY MOUTH ONC E A DAY IN THE MORNING TAKE ONE TABLET BY MOUTH ONCE A DAY IN THE MORNING SOLD: 04/23/2020 [facility] 500 mg 04/23/2020 12:00:00 AM EST tablet 180 TAKE ONE TABLET BY MOUTH TWICE A DAY WITH MEALS TAKE ONE TABLET BY MOUTH TWICE A DAY WITH MEALS SOLD: 04/23/2020 [facility] Paroxetine Hydrochloride 40 MG Oral Tablet PAROXETINE HCL 04/05/2020 12:00:00 AM EST tablet 30 TAKE ONE TABLET BY MOUTH KAYLEY RY MORNING DIRECTED TAKE ONE TABLET BY MOUTH EVERY MORNING DIRECTED SOLD: 04/06/2020 [facility] 0.5 mg 12/30/2019 12:00:00 AM EDT tablet 90 TAKE ONE TABLET BY MOUTH THREE TIMES A DAY NEEDED, MAXIMUM DAILY DOSE = THREE TABLETS TAKE ONE TABLET BY MOUTH THREE TIMES A DAY NEEDED, MAXIMUM DAILY DOSE = THREE TABLETS SOLD: 12/30/2019 [facility] 40 mg 10/21/2019 12:00:00 AM EDT tablet 30 TAKE ONE TABLET BY MOUTH EVERY DAY DIRECTED TAKE ONE TABLET BY MOUTH EVERY DAY DIRECTED SOLD: 020 [facility] glimepiride 2 MG Oral Tablet GLIMEPIRIDE 10/21/2019 12:00:00 AM EDT ta blet 30 TAKE ONE TABLET BY MOUTH EVERY DAY WITH FIRST MEAL OF THE DAY TAKE ONE TABLET BY MOUTH EVERY DAY WITH FIRST MEAL OF THE DAY SOLD: 11/14/2019 [facility] glimepiride 2 MG Oral Tablet GLIMEPIRIDE 10/21/2019 12:00:00 AM EDT ta blet 30 TAKE ONE TABLET BY MOUTH EVERY DAY WITH FIRST MEAL OF THE DAY TAKE ONE TABLET BY MOUTH EVERY DAY WITH FIRST MEAL OF THE DAY SOLD: 01/20/2020 [facility] 25 mg 10/21/2019 12:00:00 AM EDT tablet 30 TAKE ONE TABLET BY MOUTH EVERY DAY TAKE ONE TABLET BY MOUTH EVERY DAY SOLD: 01/30/2020 [facility] 40 mg 10/21/2019 12:00:00 AM EDT tablet 30 TAKE ONE TABLET BY MOUTH EVERY DAY DIRECTED TAKE ONE TABLET BY MOUTH EVERY DAY DIRECTED SOLD: 020 [facility] glimepiride 2 MG Oral Tablet GLIMEPIRIDE 10/21/2019 12:00:00 AM EDT ta blet 30 TAKE ONE TABLET BY MOUTH EVERY DAY WITH FIRST MEAL OF THE DAY TAKE ONE TABLET BY MOUTH EVERY DAY WITH FIRST MEAL OF THE DAY SOLD: 04/02/2020 [facility] 25 mg 10/21/2019 12:00:00 AM EDT tablet 30 TAKE ONE TABLET BY MOUTH EVERY DAY TAKE ONE TABLET BY MOUTH EVERY DAY SOLD: 04/02/2020 [facility] 0.5 mg 10/21/2019 12:00:00 AM EDT tablet 90 TAKE 1 TABLET BY MOUTH THREE TIMES A DAY NEEDED MAXIMUM DAILY DOSE = 3 TABLETS TAKE 1 TABLET BY MOUTH THREE TIMES A DAY NEEDED MAXIMUM DAILY DOSE = 3 TABLETS SOLD: 10/21/2019 [facility] 40 mg 10/21/2019 12:00:00 AM EDT tablet 30 TAKE ONE TABLET BY MOUTH EVERY DAY DIRECTED TAKE ONE TABLET BY MOUTH EVERY DAY DIRECTED SOLD: 020 [facility] glimepiride 2 MG Oral Tablet GLIMEPIRIDE 10/21/2019 12:00:00 AM EDT ta blet 30 TAKE ONE TABLET BY MOUTH EVERY DAY WITH FIRST MEAL OF THE DAY TAKE ONE TABLET BY MOUTH EVERY DAY WITH FIRST MEAL OF THE DAY SOLD: 10/24/2019 [facility] 40 mg 10/21/2019 12:00:00 AM EDT tablet 30 TAKE ONE TABLET BY MOUTH EVERY DAY DIRECTED TAKE ONE TABLET BY MOUTH EVERY DAY DIRECTED SOLD: [facility] 25 mg 10/21/2019 12:00:00 AM EDT tablet 30 TAKE ONE TABLET BY MOUTH EVERY DAY TAKE ONE TABLET BY MOUTH EVERY DAY SOLD: 12/25/2019 [facility] 40 mg 10/21/2019 12:00:00 AM EDT tablet 30 TAKE ONE TABLET BY MOUTH EVERY DAY DIRECTED TAKE ONE TABLET BY MOUTH EVERY DAY DIRECTED SOLD: [facility] glimepiride 2 MG Oral Tablet GLIMEPIRIDE 10/21/2019 12:00:00 AM EDT ta blet 30 TAKE ONE TABLET BY MOUTH EVERY DAY WITH FIRST MEAL OF THE DAY TAKE ONE TABLET BY MOUTH EVERY DAY WITH FIRST MEAL OF THE DAY SOLD: 02/14/2020 [facility] 25 mg 10/21/2019 12:00:00 AM EDT tablet 30 TAKE ONE TABLET BY MOUTH EVERY DAY TAKE ONE TABLET BY MOUTH EVERY DAY SOLD: 02/29/2020 [facility] glimepiride 2 MG Oral Tablet GLIMEPIRIDE 10/21/2019 12:00:00 AM EDT ta blet 30 TAKE ONE TABLET BY MOUTH EVERY DAY WITH FIRST MEAL OF THE DAY TAKE ONE TABLET BY MOUTH EVERY DAY WITH FIRST MEAL OF THE DAY SOLD: 12/25/2019 [facility] 25 mg 10/21/2019 12:00:00 AM EDT tablet 30 TAKE ONE TABLET BY MOUTH EVERY DAY TAKE ONE TABLET BY MOUTH EVERY DAY SOLD: 10/24/2019 [facility] 25 mg 10/21/2019 12:00:00 AM EDT tablet 30 TAKE ONE TABLET BY MOUTH EVERY DAY TAKE ONE TABLET BY MOUTH EVERY DAY SOLD: 11/14/2019 [facility] 40 mg 10/21/2019 12:00:00 AM EDT tablet 30 TAKE ONE TABLET BY MOUTH EVERY DAY DIRECTED TAKE ONE TABLET BY MOUTH EVERY DAY DIRECTED SOLD: [facility] atorvastatin 20 MG Oral Tablet ATORVASTATIN CALCIUM 10/08/2019 1 2:00:00 AM EDT tablet 90 TAKE ONE TABLET BY MOUTH EVERY D AY TAKE ONE TABLET BY MOUTH EVERY DAY SOLD: 10/10/2019 [facility] Metformin hydrochloride 500 MG Oral Tablet METFORMIN HCL 10/08/2019 12:00:00 AM EDT tablet 180 TAKE ONE TABLET BY MOUTH TWI CE A DAY WITH MEALS TAKE ONE TABLET BY MOUTH TWICE A DAY WITH MEALS SOLD: 12/25/2019 [facility] atorvastatin 20 MG Oral Tablet ATORVASTATIN CALCIUM 10/08/2019 1 2:00:00 AM EDT tablet 90 TAKE ONE TABLET BY MOUTH EVERY D AY TAKE ONE TABLET BY MOUTH EVERY DAY SOLD: 01/30/2020 [facility] 500 mg 10/08/2019 12:00:00 AM EDT tablet 180 TAKE ONE TABLET BY MOUTH TWICE A DAY WITH MEALS TAKE ONE TABLET BY MOUTH TWICE A DAY WITH MEALS SOLD: 10/10/2019 [facility] atorvastatin 20 MG Oral Tablet ATORVASTATIN CALCIUM 09/24/2019 1 2:00:00 AM EDT tablet 30 TAKE ONE TABLET BY MOUTH EVERY D AY TAKE ONE TABLET BY MOUTH EVERY DAY SOLD: 09/26/2019 [facility] 500 mg 09/22/2019 12:00:00 AM EDT tablet 60 TAKE ONE TABLET BY MOUTH TWICE A DAY WITH MEALS TAKE ONE TABLET BY MOUTH TWICE A DAY WITH MEALS SOLD: 2019 [facility] glimepiride 2 MG Oral Tablet GLIMEPIRIDE 09/22/2019 12:00:00 AM EDT ta blet 30 TAKE ONE TABLET BY MOUTH EVERY DAY WITH FIRST MEAL OF THE DAY TAKE ONE TABLET BY MOUTH EVERY DAY WITH FIRST MEAL OF THE DAY SOLD: 09/22/2019 [facility] 0.5 mg 09/22/2019 12:00:00 AM EDT tablet 90 TAKE ONE TABLET BY MOUTH THREE TIMES A DAY NEEDED, MAXIMUM DAILY DOSE = THREE TABLETS TAKE ONE TABLET BY MOUTH THREE TIMES A DAY NEEDED, MAXIMUM DAILY DOSE = THREE TABLETS SOLD: 09/22/2019 [facility] 25 mg 08/26/2019 12:00:00 AM EDT tablet 30 TAKE ONE TABLET BY MOUTH EVERY DAY TAKE ONE TABLET BY MOUTH EVERY DAY SOLD: 08/27/2019 [facility] 25 mg 08/26/2019 12:00:00 AM EDT tablet 30 TAKE ONE TABLET BY MOUTH EVERY DAY TAKE ONE TABLET BY MOUTH EVERY DAY SOLD: 09/26/2019 [facility] BLOOD SUGAR DIAGNOSTIC 07/01/2019 12:00:00 AM EST strip 100 USE THREE TIMES A DAY DIRECTED USE THREE TIMES A DAY DIRECTED SOLD: 12/30/2019 [facility] BLOOD SUGAR DIAGNOSTIC 07/01/2019 12:00:00 AM EST strip 100 USE THREE TIMES A DAY DIRECTED USE THREE TIMES A DAY DIRECTED SOLD: 07/03/2019 [facility] Test Strips - UNK 06/30/2019 12:00:00 AM EST acti ve Test Strips - eCW1 ([facility]) Test Strips - UNK 06/30/2019 12:00:00 AM EST acti ve Test Strips - eCW1 ([facility]) Test Strips - UNK 06/30/2019 12:00:00 AM EST acti ve Test Strips - eCW1 ([facility]) Test Strips - UNK 06/30/2019 12:00:00 AM EST acti ve Test Strips - eCW1 ([facility]) Test Strips - UNK 06/30/2019 12:00:00 AM EST acti ve as directed eCW1 ([facility]) Test Strips - UNK 06/30/2019 12:00:00 AM EST acti ve Test Strips - eCW1 ([facility]) Test Strips - UNK 06/30/2019 12:00:00 AM EST acti ve Test Strips - eCW1 ([facility]) Test Strips - K 06/30/2019 12:00:00 AM EST acti ve Test Strips - eCW1 ([facility]) Test Strips - K 06/30/2019 12:00:00 AM EST acti ve Test Strips - eCW1 ([facility]) Blood Glucose Test - Blood Glucose Test - 06/29/2019 12:00:00 AM EST active Blood Glucose Test - eCW[facility] ([facility] Blood Glucose Test - Blood Glucose Test - 06/29/2019 12:00:00 AM EST active Blood Glucose Test - eCW1 ([facility]) Blood Glucose Test - Blood Glucose Test - 06/29/2019 12:00:00 AM EST active as directed eCW1 ([facility]) Blood Glucose Test - Blood Glucose Test - 06/29/2019 12:00:00 AM EST active Blood Glucose Test - eCW1 ([facility]) Blood Glucose Test - Blood Glucose Test - 06/29/2019 12:00:00 AM EST active Blood Glucose Test - eCW1 ([facility]) Blood Glucose Test - Blood Glucose Test - 06/29/2019 12:00:00 AM EST active Blood Glucose Test - eCW1 ([facility]) Blood Glucose Test - Blood Glucose Test - 06/29/2019 12:00:00 AM EST active Blood Glucose Test - eCW1 ([facility]) Blood Glucose Test - Blood Glucose Test - 06/29/2019 12:00:00 AM EST active Blood Glucose Test - eCW1 ([facility]) Blood Glucose Test - Blood Glucose Test - 06/29/2019 12:00:00 AM EST active Blood Glucose Test - eCW1 ([facility]) glimepiride 2 MG Oral Tablet GLIMEPIRIDE 06/22/2019 12:00:00 AM EST ta blet 30 TAKE ONE TABLET BY MOUTH EVERY DAY WITH THE FIRST MAIN MEAL OF THE DAY TAKE ONE TABLET BY MOUTH EVERY DAY WITH THE FIRST MAIN MEAL OF THE DAY SOLD: 07/30/2019 [facility] 500 mg 06/22/2019 12:00:00 AM EST tablet 60 TAKE ONE TABLET BY MOUTH TWICE A DAY WITH MEALS TAKE ONE TABLET BY MOUTH TWICE A DAY WITH MEALS SOLD: 2019 [facility] 500 mg 06/22/2019 12:00:00 AM EST tablet 60 TAKE ONE TABLET BY MOUTH TWICE A DAY WITH MEALS TAKE ONE TABLET BY MOUTH TWICE A DAY WITH MEALS SOLD: 2019 [facility] glimepiride 2 MG Oral Tablet GLIMEPIRIDE 06/22/2019 12:00:00 AM EST ta blet 30 TAKE ONE TABLET BY MOUTH EVERY DAY WITH THE FIRST MAIN MEAL OF THE DAY TAKE ONE TABLET BY MOUTH EVERY DAY WITH THE FIRST MAIN MEAL OF THE DAY SOLD: 06/23/2019 [facility] glimepiride 2 MG Oral Tablet GLIMEPIRIDE 06/22/2019 12:00:00 AM EST ta blet 30 TAKE ONE TABLET BY MOUTH EVERY DAY WITH THE FIRST MAIN MEAL OF THE DAY TAKE ONE TABLET BY MOUTH EVERY DAY WITH THE FIRST MAIN MEAL OF THE DAY SOLD: 08/27/2019 [facility] 0.5 mg 06/22/2019 12:00:00 AM EST tablet 90 TAKE ONE TABLET BY MOUTH THREE TIMES A DAY NEEDED, MAXIMUM DAILY DOSE = THREE TABLETS TAKE ONE TABLET BY MOUTH THREE TIMES A DAY NEEDED, MAXIMUM DAILY DOSE = THREE TABLETS SOLD: 06/23/2019 [facility] 500 mg 06/22/2019 12:00:00 AM EST tablet 60 TAKE ONE TABLET BY MOUTH TWICE A DAY WITH MEALS TAKE ONE TABLET BY MOUTH TWICE A DAY WITH MEALS SOLD: 2019 [facility] 24 HR Nicotine 0.875 MG/HR Transdermal Patch Nicotine 21 MG/24HR Nicotine 21 MG/24HR 05/28/2019 12:00:00 AM EST 1.0 {patch_to_skin} active Nicotine 21 MG/24HR eCW1 ([facility]) 24 HR Nicotine 0.875 MG/HR Transdermal Patch Nicotine 21 MG/24HR Nicotine 21 MG/24HR 05/28/2019 12:00:00 AM EST 1.0 {patch_to_skin} active Nicotine 21 MG/24HR eCW1 ([facility]) 24 HR Nicotine 0.875 MG/HR Transdermal Patch Nicotine 21 MG/24HR Nicotine 21 MG/24HR 05/28/2019 12:00:00 AM EST 1.0 {patch_to_skin} active Nicotine 21 MG/24HR eCW1 ([facility]) 24 HR Nicotine 0.875 MG/HR Transdermal Patch Nicotine 21 MG/24HR Nicotine 21 MG/24HR 05/28/2019 12:00:00 AM EST 1.0 {patch_to_skin} active Nicotine 21 MG/24HR eCW1 ([facility]) 24 HR Nicotine 0.875 MG/HR Transdermal Patch Nicotine 21 MG/24HR Nicotine 21 MG/24HR 05/28/2019 12:00:00 AM EST 1.0 {patch_to_skin} active Nicotine 21 MG/24HR eCW1 ([facility]) 24 HR Nicotine 0.875 MG/HR Transdermal Patch Nicotine 21 MG/24HR Nicotine 21 MG/24HR 05/28/2019 12:00:00 AM EST active 1 patch to skin eCW1 ([facility]) 24 HR Nicotine 0.875 MG/HR Transdermal Patch Nicotine 21 MG/24HR Nicotine 21 MG/24HR 05/28/2019 12:00:00 AM EST 1.0 {patch_to_skin} active Nicotine 21 MG/24HR eCW1 ([facility]) 24 HR Nicotine 0.875 MG/HR Transdermal Patch Nicotine 21 MG/24HR Nicotine 21 MG/24HR 05/28/2019 12:00:00 AM EST 1.0 {patch_to_skin} active Nicotine 21 MG/24HR eCW1 ([facility]) 24 HR Nicotine 0.875 MG/HR Transdermal Patch Nicotine 21 MG/24HR Nicotine 21 MG/24HR 05/28/2019 12:00:00 AM EST 1.0 {patch_to_skin} active Nicotine 21 MG/24HR eCW1 ([facility]) 25 mg 02/25/2019 12:00:00 AM EDT tablet 90 TAKE ONE TABLET BY MOUTH EVERY DAY TAKE ONE TABLET BY MOUTH EVERY DAY SOLD: 06/01/2019 [facility] 500 mg 12/27/2018 12:00:00 AM EDT tablet 60 TAKE ONE TABLET BY MOUTH TWICE A DAY WITH MEALS TAKE ONE TABLET BY MOUTH TWICE A DAY WITH MEALS SOLD: 2019 [facility] 500 mg 12/27/2018 12:00:00 AM EDT tablet 60 TAKE ONE TABLET BY MOUTH TWICE A DAY WITH MEALS TAKE ONE TABLET BY MOUTH TWICE A DAY WITH MEALS SOLD: 2018 [facility] 40 mg 12/09/2018 12:00:00 AM EDT tablet 30 TAKE ONE TABLET BY MOUTH EVERY DAY DIRECTED TAKE ONE TABLET BY MOUTH EVERY DAY DIRECTED SOLD: 020 [facility] 40 mg 12/09/2018 12:00:00 AM EDT tablet 30 TAKE ONE TABLET BY MOUTH EVERY DAY DIRECTED TAKE ONE TABLET BY MOUTH EVERY DAY DIRECTED SOLD: 020 [facility] 40 mg 12/09/2018 12:00:00 AM EDT tablet 30 TAKE ONE TABLET BY MOUTH EVERY DAY DIRECTED TAKE ONE TABLET BY MOUTH EVERY DAY DIRECTED SOLD: 020 [facility] 40 mg 12/09/2018 12:00:00 AM EDT tablet 30 TAKE ONE TABLET BY MOUTH EVERY DAY DIRECTED TAKE ONE TABLET BY MOUTH EVERY DAY DIRECTED SOLD: 020 [facility] 40 mg 12/09/2018 12:00:00 AM EDT tablet 30 TAKE ONE TABLET BY MOUTH EVERY DAY DIRECTED TAKE ONE TABLET BY MOUTH EVERY DAY DIRECTED SOLD: 020 [facility] 40 mg 12/09/2018 12:00:00 AM EDT tablet 30 TAKE ONE TABLET BY MOUTH EVERY DAY DIRECTED TAKE ONE TABLET BY MOUTH EVERY DAY DIRECTED SOLD: 020 [facility] Insurance Providers Payer name Policy type / Coverage type Policy ID Covered alliance party ID Covered alliance party's relationship to glass Policy Glass Plan Information WELLCARE [id number] SP [id number] MEDICARE [id number] SP [id number] MEDICARE COMPLETE [id number] SP [id number] [facility] [employer] [id number] Self [id number] [facility] Medicare Medicare Part B [id number] Self [id number] MEDICARE COMPLETE-[facility] O [id number] S [id number] AETNA MEDICARE [id number] SP [id number] FJC AETNA MEDICARE [id number] SP [id number] FJ Aetna Ppo/Pos/Nap/MC Commercial [id number] Self [id number] Aetna Ppo/Pos/Nap/MC Commercial [id number] Self MEBQYFJC AETNA MEDICARE [id number] SP MEBQY FJC MEDICARE BLUE PPO [id number] SP [id number] [employer] OPTIONS/GHANAIAN O [id number] S [id number] TODAYS OPTION -O/P [id number] 18 [id number] [employer] B [id number] S [id number] MEDICARE BLUE PPO 306 [id number] SP [id number] [place] 306/806 [id number] SP [id number] [employer] OPTIONS [id number] [place] [id number] Problems, Conditions, and Diagnoses Code Display Name Description Problem Type Effective Dates Data Source(s) 129192491 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, ) 16581712 Diffuse Lewy body disease Diffuse Lewy body disease Pr oblem 06/09/2020 12:00:00 AM EST MEDENT ([facility], ) R26.81 19535850 Unsteady gait Problem 04/22/2020 12:00:00 AM EST eCW1 ([facility]) M54.42 [id number] Lumbago with sciatica, left side Problem 09/24/2019 12:00:00 AM EDT eCW1 ([facility]) M54.42 876053075 Lumbago with sciatica, left side Problem 09/24/2019 12:00:00 AM EDT eCW1 ([facility]) F17.210 48716900 Nicotine dependence, cigarettes, uncompli cated Problem 05/28/2019 12:00:00 AM EST eCW1 ([facility]) F17.210 03291157 Nicotine dependence, cigarettes, uncompli cated Problem 05/28/2019 12:00:00 AM EST eCW1 ([facility]) Surgeries/Procedures Procedure Description Date Indications Data Source(s) BEHAV CHNG SMOKING 3-10 MIN 05/28/2019 12:00:00 AM EST eCW1 ([facility]) Results ID Date Data Source [id number] 06/19/2020 08:03:00 PM EST [facility] Name Value Range Interpretation Code Description Data Shannon rce(s) Supporting Document(s) SARS COVID ANTIGEN NEGATIVE [facility] This lab was ordered by BJ ortega nd reported by [facility]. ID Date Data Source [id number] 2020 12:00:00 AM EST [facility] Name Value Range Interpretation Code Description Data Shannon rce(s) Supporting Document(s) SARS coronavirus 2 RNA [Presence] in Res piratory specimen by MAHESH with probe detection NEGATIVE [facility] This lab was ordered by Danielle Hammond and reported by [facility]. ID Date Data Source [id number] 2020 12:00:00 AM EST [facility] Name Value Range Interpretation Code Description Data Shannon rce(s) Supporting Document(s) Carestart Rapid COVID Antigen Test Negative [facility] This lab was reported by Danielle lal. ID Date Data Source [id number] 06/10/2020 12:08:00 PM EST MEDENT ([facility]) Name Value Range Interpretation Code Description Data Shannon rce(s) Supporting Document(s) Vitamin B12 Level 548 pg/mL MEDENT ([facility], ) VITAMIN B12 NORMAL RANGE NORMAL 247 - 911 PG/ML INDETERMINATE 211 - 246 PG/ML DEFICIENT LESS THAN 211 PG/ML Folate 10.7 ng/mL MEDENT ([facility], ) FOLATE NORMAL RANGE NORMAL GREATER THAN 5.4 NG/ML INDETERMINATE 3.4-5.4 NG/ML DEFICIENT LESS THAN 3.4 NG/ML ID Date Data Source [id number] 06/10/2020 12:08:00 PM EST [facility] ([facility], ) Name Value Range Interpretation Code Description Data Shannon rce(s) Supporting Document(s) Thyrotropin [Units/volume] in Serum or Plasma 4.060 uIU/ML 0.358-3.74 0 [facility] ([facility], ) ID Date Data Source [id number] 12/28/2019 12:00:00 AM EDT [facility] Ольга BARONE Patient Name: ELIUD [id number] [facility] Date of : 1940[place] [address] Date of Exam: 12/28/2019#: Fax: [phone] EXAM: MAMMO SCREENING WITH CADCLINICAL INFORMATION: Screening.This patient's lifetime risk for the development of invasive breast cancercan't be calculated due to her age (less than 20 or greater than 85 years)or a prior history of in situ or invasive breast cancer.Your patient's personal and/or family history of cancer submitted at thetime of imaging is suggestive of a hereditary cancer syndrome. She meetsthe criteria for genetic testing established by National ComprehensiveCan[employer] Network and [place] [employer] guidelines. She should pursue arisk assessment with a hereditary cancer specialist which may includetesting based on these criteria. The benefits and limitations of genetictesting would be discussed, including potential changes to medicalmanagement based on the results. Your patient declined Cristal genetictesting at this time.Digital screening (2D) mammography was performed right breast.Additionally, breast tomosynthesis (3D mammography) was performed rightbreast in the CC and MLO projections and compared to the prior exam(s).By history, the patient has no complaints of a palpable breast abnormalityor other significant breast complaints.The patient states that a clinical breast exam was not performed.The patient is status post left mastectomy with chemotherapy due to breastcarcinoma diagnosed in 1998.The right breast is unchanged in size and shape. Once again, denseheterogeneous fibroglandular elements are seen bilaterally in a stableappearing pattern but to such a degree that the sensitivity of themammogram in detecting cancer is decreased. There are no bambi- areas ofinternal architectural distortion. There are no bambi-soft tissue densitiesor areas of spiculation. Stable appearing benign calcifications are againseen throughout the right breast, some of which are in groups but no onegroup appears more suspicious than any other and no group appears to havechanged significantly.The Volpara volumetric breast density category is C, the breasts areheterogeneously dense which may obscure small masses.IMPRESSION:BI-RADS Category 2 - Benign Finding(s). There is no evidence of malignantalteration of the breast. Routine screening mammogram recommended at itsregularly scheduled annual interval.This mammogram was read with the assistance of [employer], an FDAapproved computer aided detection system for mammography.Negative x-ray reports should not delay surgical consultation if a dominantor clinically suspicious mass is present.Not all breast cancers can be identified by mammography. Therefore, werecommend that you continue to perform regular breast self-examination andphysical examination and then promptly contact your physician of anyconcerns or changes.Adenosis and dense breasts may obscure an underlying neoplasm.PEGGY Stanley/Isael you for referring JAIMEE GUERRERO to our office. Electronically Signed - CONSTANTINE WING DO 12/29/19 13:41 Name Value Range Interpretation Code Description Data Shannon rce(s) Supporting Document(s) Procedure Social History Code Duration Value Status Description Data Source(s ) Smoking 04/22/2020 12:00:00 AM EST Current Smoker completed Curre nt Smoker eCW1 ([facility]) Smoking 04/22/2020 12:00:00 AM EST Current Smoker completed Curre nt Smoker eCW1 ([facility]) Smoking 04/22/2020 12:00:00 AM EST Current Smoker completed Curre nt Smoker eCW1 ([facility]) Smoking 04/22/2020 12:00:00 AM EST Current Smoker completed Curre nt Smoker eCW1 ([facility]) Smoking 04/22/2020 12:00:00 AM EST Current Smoker completed Curre nt Smoker eCW1 ([facility]) Smoking 09/24/2019 12:00:00 AM EDT Current Smoker completed Curre nt Smoker eCW1 ([facility]) Smoking 09/24/2019 12:00:00 AM EDT Current Smoker completed Curre nt Smoker eCW1 ([facility]) Smoking 09/24/2019 12:00:00 AM EDT Current Smoker completed Curre nt Smoker eCW1 ([facility]) Vital Signs ID Date Data Source UNK Name Value Range Interpretation Code Description Data Source(s) [place] body weight 125 [lb_av] 125 [lb_av] MEDEN T ([facility]) Body mass index (BMI) [Ratio] 25.0 kg/m2 25.0 k g/m2 [facility] ([facility]) Body weight 150.00 [lb_av] 150.00 [lb_av] BRADENEN T ([facility]) Body height 65 [in_i] 65 [in_i] [facility] ([facility]) 5'5" Respiratory rate 14 /min 14 /min [facility] ( [facility]) Heart rate 78 /min 78 /min [facility] ([facility]) Diastolic blood pressure 80 mm[Hg] 80 mm[Hg] MEDENT ([facility]) Systolic blood pressure 120 mm[Hg] 120 mm[Hg] M EDENT ([facility]) Diastolic blood pressure 82 mm[Hg] 82 mm[Hg] eCW1 ([facility]) Systolic blood pressure 148 mm[Hg] 148 mm[Hg] e CW1 ([facility]) Body temperature 97.9 [degF] 97.9 [degF] eCW1 ( [facility]) Respiratory rate 18 /min 18 /min eCW1 ([facility]) Heart rate 73 /min 73 /min eCW1 ([facility]) Body mass index (BMI) [Ratio] 25.47 kg/m2 25.47 kg/m2 eCW1 ([facility]) Body height [in_i] eCW1 ([facility]) Body weight 153.1 [lb_av] 153.1 [lb_av] eCW1 ([facility]) Diastolic blood pressure 78 mm[Hg] 78 mm[Hg] eCW1 ([facility]) Systolic blood pressure 156 mm[Hg] 156 mm[Hg] e CW1 ([facility]) Body temperature 98.1 [degF] 98.1 [degF] eCW1 ( [facility]) Respiratory rate 18 /min 18 /min eCW1 ([facility]) Heart rate 76 /min 76 /min eCW1 ([facility]) Body mass index (BMI) [Ratio] 26.69 kg/m2 26.69 kg/m2 W1 ([facility]) Body height [in_i] eCW1 ([facility]) Body weight 160.4 [lb_av] 160.4 [lb_av] eCW1 ([facility]) Diastolic blood pressure 88 mm[Hg] 88 mm[Hg] eCW1 ([facility]) Systolic blood pressure 168 mm[Hg] 168 mm[Hg] e CW1 ([facility]) Body temperature 98.4 [degF] 98.4 [degF] eCW1 ( [facility]) Respiratory rate 18 /min 18 /min eCW1 ([facility]) Heart rate 84 /min 84 /min eCW1 ([facility]) Body mass index (BMI) [Ratio] 27.42 kg/m2 27.42 kg/m2 eCW1 ([facility]) Body height [in_us] eCW1 ([facility]) Body weight Measured 164.8 [lb_av] 164.8 [lb_av ] eCW1 ([facility]) Patient Treatment Plan of Care Planned Activity Planned Date Details Description Data Source (s) buspirone hydrochloride 7.5 MG Oral Tablet 05/19/2020 12:00:[address] eCW1 ([facility]) buspirone hydrochloride 7.5 MG Oral Tablet 05/19/2020 12:00:[address] eCW1 ([facility]) buspirone hydrochloride 7.5 MG Oral Tablet 05/19/2020 12:00:[address] eCW1 ([facility]) buspirone hydrochloride 7.5 MG Oral Tablet 05/19/2020 12:00:[address] eCW1 ([facility]) buspirone hydrochloride 7.5 MG Oral Tablet 05/19/2020 12:00:[address] eCW1 ([facility]) Test Strips - 06/30/2019 12:00:00 AM EST eCW1 ([facility]) Blood Glucose Test - 06/29/2019 12:00:00 AM EST eCW1 ([facility]) 24 HR Nicotine 0.875 MG/HR Transdermal Patch 05/28/2019 12:00:00 AM EST eCW1 ([facility]) 24 HR Nicotine 0.875 MG/HR Transdermal Patch 05/28/2019 12:00:00 AM EST eCW1 ([facility]) 24 HR Nicotine 0.875 MG/HR Transdermal Patch 05/28/2019 12:00:00 AM EST eCW1 ([facility]) 24 HR Nicotine 0.875 MG/HR Transdermal Patch 05/28/2019 12:00:00 AM EST eCW1 ([facility])
--- OUTSIDE RECORDS SUMMARY | 2020-06-26 14:12 | CCD ---
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 Active 561133429 Problem Personal history of breast cancer Z85.3 Active 124918461 Problem Other chronic pain G89.29 Active 82296335 Problem Essential hypertension I10 Active 90139269 Problem Type 2 diabetes mellitus wit hout complication, without long-term current use of insulin E11.9 Active 211523752 Problem Nicotine dependence, cigarettes, uncomplicated F17 .210 Active 33736276 Problem Lumbago with sciatica, right side M54.41 Active 455978587 Problem Lumbago with sciatica, left side M54.42 Active 528720706 Problem Tobacco use disorder F17.200 Active 167048857 Problem Hyperlipidemia, unspecified hyperlipidemia type E7 8.5 Active 50218499 Problem Panic attacks F41.0 Active 869961511 Problem Depression, unspecified depression type F32.9 Active 01589568 Problem Anxiety F41.9 Active 47939489 ALLERGIES Allergen (clinical drug ingredient) Drug/Non Drug Allergy do cumented on EMR Reaction Allergy Type Onset Date Status Sulfa (for allergy use only) white around lips Drug Aller gy Active ENCOUNTERS from 1940 to 2020-04-06 Encounter Location Date Provider Diagnosis [address] [place] [address] Mar, Ольга Vasques IMMUNIZATIONS No Information SOCIAL HISTORY Tobacco Use: Social History Observation Description Date Details (start date - stop date) Current Smoker Sex Assigned At : Social History Observation Description Sex Assigned At Unknown Education: Question Answer Notes Level of Education: High School Audit Question Answer Notes Total Score: 0 Interpretation: Alcohol Education Language: Question Answer Notes Languages spoken: Yoruba Yazidi: Question Answer Notes Yazidi 33 None Sexual Hx: Question Answer Notes [...] Notes Start Da te End Date Status Atorvastatin Calcium 20 MG 1 tablet Orally Once a day for 90 day(s) Active Hydrochlorothiazide 25 MG TAKE ONE TABLET BY MOUTH KAYLEY RY DAY Oral Daily for 30 Days Active Paroxetine HCl 40 MG 1 tablet in the morning Oral Once a day for 30 d ays Active Clonazepam 0.5 MG (Schedule IV Drug) TAKE ONE TABLET BY MOUTH THREE TIMES A DAY NEEDED MAXIMUM DAILY DOSE 3 Oral three times a day as needed for 30 days Active Nicotine 21 MG/24HR 1 patch to skin Transdermal Once a day for 3 0 day(s) May, Active Blood Glucose Test - as directed In Vitro three times a day for 30 days Jun, Active Ibuprofen 600 MG TAKE ONE TABLET BY MOUTH THR EE TIMES A DAY NEEDED WITH FOOD OR MILK Oral Not-Taking Metformin HCl 500 MG TAKE ONE TABLET BY MOUTH TWI CE A DAY WITH MEALS Oral twice a day for 90 day(s) Active Test Strips - as directed Dx: E11.9 3 times a day for 30 Days Jun, Active Tylenol 325 MG 1 tablet as needed Orally every 4 hrs Active Debrox 6.5 % 5 drops into affected ear Otic Twice a day for 4 day(s) Dec, Not-Taking Glimepiride 2 MG TAKE ONE TABLET BY MOUTH ONC E DAILY WITH FIRST MAIN MEAL OF THE DAY Oral Once a day for 30 Days Active Aspir-81 Active PROCEDURES No Information RESULTS No Results REASON FOR VISIT PA needed for Paroxetine HCl 40 MG Tablet? MEDICAL (GENERAL) HISTORY Type Description Date Medical [...] Medication Name Sig Start Date Stop Date Nicotine 21 MG/24HR 1 patch to skin Transdermal Once a day f or 30 day(s) May, Glimepiride 2 MG TAKE ONE TABLET BY MOUTH ONC E DAILY WITH FIRST MAIN MEAL OF THE DAY Oral Once a day for 30 Days Clonazepam 0.5 MG (Schedule IV Drug) TAKE ONE TABLET BY MOUTH THREE TIMES A DAY NEEDED MAXIMUM DAILY DOSE 3 Oral three times a day as needed for 30 days Paroxetine HCl 40 MG 1 tablet in the morning Oral Once a day for 30 days Metformin HCl 500 MG TAKE ONE TABLET BY MOUTH TWI CE A DAY WITH MEALS Oral twice a day for 90 day(s) Hydrochlorothiazide 25 MG TAKE ONE TABLET BY MOUTH KAYLEY RY DAY Oral Daily for 30 Days Atorvastatin Calcium 20 MG 1 tablet Orally Once a day for 90 day (s) Next Appt Details Provider Name:Ольга Vasques, 2020-04-22 04 :00:00 PM, [facility] [place], [address], Insurance Providers Payer Name Payer Address Payer Phone Insured Name Patient Relati onship to Insured Coverage Start Date Coverage End Date MEDICARE COMPLETE [facility] [address] [address] [place] [id number] JAIMEE GUERRERO self
[2020-06-26] MEDS ORDERED: NS 1,000 ML IV SCH (14:22)
[2020-06-26] MEDS ORDERED: NS 500 ML IV ONE (14:30)
--- NOTE | 2020-06-26 14:59 | REP ---
INDICATION: Altered Mental Status. COMPARISON: Comparison chest x-ray June 19, 2020. TECHNIQUE: Portable upright AP chest radiograph. FINDINGS: The lungs are well inflated and free of infiltrate. Pleural angles are sharp. Heart size is normal. Pulmonary vasculature is not increased. There are surgical clips in the left axillary soft tissues. The patient appears to be status post left mastectomy. EKG monitoring electrodes are noted. IMPRESSION: No active disease. <Electronically signed by Eric Churchill > 06/26/20 [id number]
[2020-06-26 15:02] LABS: BASO % 0.2 % (0.0-1.0); EOS % 0.2 % (0.0-3.0); HEMATOCRIT 42.9 % (36.0-47.0); LYMPH # 2.1 10^3/uL (1.5-5.0); LYMPH % 17.8 % (24.0-44.0); MEAN CORPUSCULAR HEMOGLOBIN 30.1 pg (27.0-33.0); MEAN CORPUSCULAR HGB CONC 32.6 g/dl (32.0-36.5); MEAN CORPUSCULAR VOLUME 92.3 fl (80.0-96.0); MONO # 0.7 10^3/uL (0.0-0.8); NEUTROPHILS # 8.8 10^3/uL (1.5-8.5); NEUTROPHILS % 75.5 % (36.0-66.0); PLATELET COUNT, AUTOMATED 243 10^3/uL (150-450); RED BLOOD COUNT 4.65 10^6/uL (4.00-5.40); WHITE BLOOD COUNT 11.7 10^3/uL (4.0-10.0)
--- OUTSIDE RECORDS SUMMARY | 2020-06-26 15:16 | CCD ---
Author Author [facility] Organization [facility] Address Unknown Phone Unavailable Care Team Providers Care [employer] Process Technician Name Role Phone Bucky Cline MD Unavailable [...] Unavailable Unavailable Bucky Cline MD Unavailable Unavailable Bucyk Cline MD Unavailable Unavailable Bucky Cline MD [...] is protected by Article 27-F of the [facility] Public Health law. If you continue you may have access to information: Regarding HIV / AIDS; Provided by facilities licensed or operated by the [facility] Office of Mental Health; or Provided by the [facility] Office for People With Developmental Disabilities. If such information is present, then the following [facility] mandated warning applies: This information has been [...] law may result in a fine or longterm sentence or both. A general authorization for the release of medical or other information is NOT sufficient authorization for further disc losure. Allergies and Adverse Reactions Type Description Substance Reaction Status Data Source(s ) Sulfa (for allergy use only) Sulfa (for allergy use only) Vitale lfa (for allergy use only) white around lips Active [facility] ([facility]) Family History Family Member Name Family Member Gender Family Member Status Date o f Status Description Data Source(s) Unknown Unknown Problem MEDENT ([facility], [facility]) Encounters Encounter Providers Location Date Indications Data Source(s ) O Attender: Rocio BARONE 021 01:10:54 PM EST - 2020 02:39:09 PM EST DocuTap ([facility] ) Office Visit Attender: Bucky Cline MD Main office - [place] 06/09/2020 10:00:00 AM EST MEDENT ([facility]) Unknown [address] [facility] [address] 05/26/2020 12:00:00 AM EST eCW1 ([facility]) Unknown [address] [facility] [address] 05/24/2020 12:00:00 AM EST eCW1 ([facility]) Unknown [address] [facility] [address] 05/18/2020 12:00:00 AM EST eCW1 ([facility]) Unknown [address] [facility] [address] 05/10/2020 12:00:00 AM EST eCW1 ([facility]) Office Visit, Est Pt., Level 4 PC [address] [place] [address] 04/22/2020 12:00:00 AM EST eCW1 ([facility]) Unknown [address] [facility] [address] 04/01/2020 12:00:00 AM EST eCW1 ([facility]) [facility] [address] [facility] [address] 01/21/2020 12:00:00 AM EDT eCW1 ([facility]) Unknown [address] [facility] [address] 10/20/2019 12:00:00 AM EDT eCW1 ([facility]) [facility] [address] [facility] [address] 10/08/2019 12:00:00 AM EDT eCW1 ([facility]) [facility] [address] [facility] [address] 09/29/2019 12:00:00 AM EDT eCW1 ([facility]) [facility] [address] [facility] [address] 09/28/2019 12:00:00 AM EDT eCW1 ([facility]) Outpatient [address] [facility] [address] 09/24/2019 12:00:00 AM EDT eCW1 ([facility]) [facility] [address] [address] 09/21/2019 12:00:00 AM EDT eCW1 ([facility]) [address] [address] 06/30/2019 12:00:00 AM EST eCW1 ([facility]) [address] [place] [address] 06/30/2019 12:00:00 AM EST eCW1 ([facility]) [address] [address] 06/23/2019 12:00:00 AM EST eCW1 ([facility]) [address] [address] 06/22/2019 12:00:00 AM EST eCW1 ([facility]) [address] [address] 06/22/2019 12:00:00 AM EST eCW1 ([facility]) [address] [address] 05/28/2019 12:00:00 AM EST eCW1 ([facility]) [address] [address] 05/08/2019 12:00:00 AM EST eCW1 ([facility]) Medications Medication Brand Name Start Date Product [...] 12:00:00 AM EST ORAL active MEDENT ([facility]) 10 mg 06/09/2020 12:00:00 [...] activ e BusPIRone HCl 7.5 MG eCW1 ([facility]) buspirone hydrochloride 7.5 MG Oral Tablet BusPIRone H Cl 7.5 MG BusPIRone HCl 7.5 MG 05/19/2020 12:00:00 AM EST 1.0 {tablet} activ e BusPIRone HCl 7.5 MG eCW1 ([facility]) buspirone hydrochloride 7.5 MG Oral Tablet BusPIRone H Cl 7.5 MG BusPIRone HCl 7.5 MG 05/19/2020 12:00:00 AM EST 1.0 {tablet} activ e BusPIRone HCl 7.5 MG eCW1 ([facility]) buspirone hydrochloride 7.5 MG Oral Tablet BusPIRone H Cl 7.5 MG BusPIRone HCl 7.5 MG 05/19/2020 12:00:00 AM EST 1.0 {tablet} activ e BusPIRone HCl 7.5 MG eCW1 ([facility]) buspirone hydrochloride 7.5 MG Oral Tablet BusPIRone H Cl 7.5 MG BusPIRone HCl 7.5 MG 05/19/2020 12:00:00 AM EST 1.0 {tablet} activ e BusPIRone HCl 7.5 MG eCW1 ([facility]) Paroxetine Hydrochloride 40 MG Oral Tablet PAROXETINE HCL 04/27/2020 12:00:00 AM EST tablet 30 TAKE ONE TABLET BY MOUTH ONCE A DAY(WITH THE 10MG FOR A TOTAL OF 50MG) TAKE ONE TABLET BY MOUTH ONCE A DAY(WITH THE 10MG FOR A TOTAL OF 50MG) SOLD: 04/27/[address] [facility] Paroxetine Hydrochloride 40 MG Oral Tablet PAROXETINE HCL 04/27/2020 12:00:00 AM EST tablet 30 TAKE ONE TABLET BY MOUTH ONCE A DAY(WITH THE 10MG FOR A TOTAL OF 50MG) TAKE ONE TABLET BY MOUTH ONCE A DAY(WITH THE 10MG FOR A TOTAL OF 50MG) SOLD: 06/13/[address] [facility] Paroxetine Hydrochloride 40 MG Oral Tablet PAROXETINE HCL 04/27/2020 12:00:00 AM EST tablet 30 TAKE ONE TABLET BY MOUTH ONCE A DAY(WITH THE 10MG FOR A TOTAL OF 50MG) TAKE ONE TABLET BY MOUTH ONCE A DAY(WITH THE 10MG FOR A TOTAL OF 50MG) SOLD: 05/22/[address] [facility] glimepiride 2 MG Oral Tablet GLIMEPIRIDE 04/25/2020 12:00:00 AM EST ta blet 30 TAKE ONE TABLET BY MOUTH ONCE DAILY WITH FIRST MAIN MEAL OF THE DAY TAKE ONE TABLET BY MOUTH ONCE DAILY WITH FIRST MAIN MEAL OF THE DAY SOLD: 06/10/[address] [facility] 25 mg 04/25/2020 12:00:00 AM EST tablet 30 TAKE ONE TABLET BY MOUTH EVERY DAY TAKE ONE TABLET BY MOUTH EVERY DAY SOLD: 05/22/[address] [facility] 25 mg 04/25/2020 12:00:00 AM EST [...] EST acti ve Test Strips - eCW1 ([facility]) Test Strips - UNK 06/30/2019 12:00:00 AM EST acti ve Test Strips - eCW1 ([facility]) Test Strips - UNK 06/30/2019 12:00:00 AM EST acti ve Test Strips - eCW1 ([facility]) Test Strips - UNK 06/30/2019 12:00:00 AM EST acti ve Test Strips - eCW1 ([facility]) Test Strips - UNK 06/30/2019 12:00:00 AM EST acti ve as directed eCW1 ([facility]) Test Strips - UNK 06/30/2019 12:00:00 AM EST acti ve Test Strips - eCW1 ([facility]) Test Strips - UNK 06/30/2019 12:00:00 AM EST acti ve Test Strips - eCW1 ([facility]) Test Strips - K 06/30/2019 12:00:00 AM EST acti ve Test Strips - eCW1 ([facility]) Test Strips - K 06/30/2019 12:00:00 AM EST acti ve Test Strips - eCW1 ([facility]) Blood Glucose Test - Blood Glucose Test - 06/29/2019 12:00:00 AM EST active Blood Glucose Test - eCW1 ([facility]) Blood Glucose Test - Blood Glucose Test - 06/29/2019 12:00:00 AM EST active Blood Glucose Test - eCW1 ([facility]) Blood Glucose Test - Blood Glucose Test - 06/29/2019 12:00:00 AM EST active as directed eCW1 ([facility]) Blood Glucose Test - Blood Glucose Test - 06/29/2019 12:00:00 AM EST active Blood Glucose Test - eCW1 ([facility]) Blood Glucose Test - Blood Glucose Test - 06/29/2019 12:00:00 AM EST active Blood Glucose Test - eCW1 ([facility]) Blood Glucose Test - Blood Glucose Test - 06/29/2019 12:00:00 AM EST active Blood Glucose Test - eCW1 ([facility]) Blood Glucose Test - Blood Glucose Test - 06/29/2019 12:00:00 AM EST active Blood Glucose Test - eCW1 ([facility]) Blood Glucose Test - Blood Glucose Test - 06/29/2019 12:00:00 AM EST active Blood Glucose Test - eCW1 ([facility]) Blood Glucose Test - Blood Glucose Test - 06/29/2019 12:00:00 AM EST active Blood Glucose Test - eCW1 ([facility]) glimepiride 2 MG Oral Tablet GLIMEPIRIDE 06/22/2019 [...] 1.0 {patch_to_skin} active Nicotine 21 MG/24HR eCW1 ([facility]) 24 HR Nicotine 0.875 MG/HR Transdermal Patch Nicotine 21 MG/24HR Nicotine 21 MG/24HR 05/28/2019 12:00:00 AM EST 1.0 {patch_to_skin} active Nicotine 21 MG/24HR eCW1 ([facility]) 24 HR Nicotine 0.875 MG/HR Transdermal Patch Nicotine 21 MG/24HR Nicotine 21 MG/24HR 05/28/2019 12:00:00 AM EST 1.0 {patch_to_skin} active Nicotine 21 MG/24HR eCW1 ([facility]) 24 HR Nicotine 0.875 MG/HR Transdermal Patch Nicotine 21 MG/24HR Nicotine 21 MG/24HR 05/28/2019 12:00:00 AM EST 1.0 {patch_to_skin} active Nicotine 21 MG/24HR eCW1 ([facility]) 24 HR Nicotine 0.875 MG/HR Transdermal Patch Nicotine 21 MG/24HR Nicotine 21 MG/24HR 05/28/2019 12:00:00 AM EST 1.0 {patch_to_skin} active Nicotine 21 MG/24HR eCW1 ([facility]) 24 HR Nicotine 0.875 MG/HR Transdermal Patch Nicotine 21 MG/24HR Nicotine 21 MG/24HR 05/28/2019 12:00:00 AM EST active 1 patch to skin eCW1 ([facility]) 24 HR Nicotine 0.875 MG/HR Transdermal Patch Nicotine 21 MG/24HR Nicotine 21 MG/24HR 05/28/2019 12:00:00 AM EST 1.0 {patch_to_skin} active Nicotine 21 MG/24HR eCW1 ([facility]) 24 HR Nicotine 0.875 MG/HR Transdermal Patch Nicotine 21 MG/24HR Nicotine 21 MG/24HR 05/28/2019 12:00:00 AM EST 1.0 {patch_to_skin} active Nicotine 21 MG/24HR eCW1 ([facility]) 24 HR Nicotine 0.875 MG/HR Transdermal Patch Nicotine 21 MG/24HR Nicotine 21 MG/24HR 05/28/2019 12:00:00 AM EST 1.0 {patch_to_skin} active Nicotine 21 MG/24HR eCW1 ([facility]) 25 mg 02/25/2019 12:00:00 AM EDT tablet [...] type / Coverage type Policy ID Covered libertarian ID Covered libertarian's relationship to glass Policy Glass Plan Information WELLCARE [id number] SP [id number] MEDICARE [id number] SP [id number] MEDICARE COMPLETE [id number] SP [id number] [facility] [employer]. [id number] Self [id number] [facility] Medicare Medicare Part B [id number] Self [id number] MEDICARE COMPLETE-[facility] O [id number] S [id number] AETNA MEDICARE [id number] SP [id number] FJC AETNA MEDICARE [id number] SP [id number] FJ Aetna Ppo/Pos/Nap/MC Commercial [id number] Self [id number] Aetna Ppo/Pos/Nap/MC Commercial MEBQYFJC Self MEBQYFJC AETNA MEDICARE [id number] SP [id number] FJC MEDICARE BLUE PPO [id number] SP [id number] TODAYS OPTIONS/OMANI O [id number] S [id number] TODAYS OPTION -O/P [id number] 18 [id number] EXCELL[employer] BCBS B [id number] S [id number] MEDICARE BLUE PPO 306 [id number] SP [id number] BCBS OF [place] 306/806 [id number] SP [id number] [place] [id number] [place] [id number] Problems, Conditions, and Diagnoses Code Display Name Description Problem Type Effective Dates Data Source(s) 905185784 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 Problem 06/09/2020 12:00:00 AM EST ME DENT ([facility], ) 19605955 Diffuse Lewy body disease Diffuse Lewy body disease Pr oblem 06/09/2020 12:00:00 AM EST MEDENT ([facility] ) R26.81 [id number] Unsteady gait Problem 04/22/2020 12:00:00 AM EST eCW1 ([facility]) M54.42 [id number] Lumbago with sciatica, left side Problem 09/24/2019 12:00:00 AM EDT eCW1 ([facility]) M54.42 [id number] Lumbago with sciatica, left side Problem 09/24/2019 12:00:00 AM EDT eCW1 ([facility]) F17.210 [id number] Nicotine dependence, cigarettes, uncompli cated Problem 05/28/2019 12:00:00 AM EST eCW1 ([facility]) F17.210 [id number] Nicotine dependence, cigarettes, uncompli cated Problem 05/28/2019 12:00:00 AM EST eCW1 ([facility]) Surgeries/Procedures Procedure Description Date Indications Data Source(s) BEHAV CHNG SMOKING 3-10 MIN 05/28/2019 12:00:00 AM EST eCW1 ([facility]) Results ID Date Data Source [id number] 06/19/2020 08:03:00 PM EST [facility] Name Value Range Interpretation Code Description Data Shannon rce(s) Supporting Document(s) SARS COVID ANTIGEN NEGATIVE [facility] This lab was ordered by [facility] orteag nd reported by [facility]. ID Date Data Source [id number] 2020 12:00:00 AM EST [facility] Name Value Range Interpretation Code Description Data Shannon rce(s) Supporting Document(s) SARS coronavirus 2 RNA [Presence] in Res piratory specimen by MAHESH with probe detection NEGATIVE [facility] This lab was ordered by Danielle Hammond and reported by [facility]. ID Date Data Source [id number] 2020 12:00:00 AM EST [facility] Name Value Range Interpretation Code Description Data Shannon rce(s) Supporting Document(s) Carestart Rapid COVID Antigen Test Negative [facility] This lab was reported by Danielle lal. ID Date Data Source [id number] 06/10/2020 12:08:00 PM EST MEDENT ([facility]) Name Value Range Interpretation Code Description Data Shannon rce(s) Supporting Document(s) Vitamin B12 Level 548 pg/mL [facility] ([facility] ) VITAMIN B12 NORMAL RANGE NORMAL 247 - 911 PG/ML INDETERMINATE 211 - 246 PG/ML DEFICIENT LESS THAN 211 PG/ML Folate 10.7 ng/mL MEDENT ([facility], ) FOLATE NORMAL RANGE NORMAL GREATER THAN 5.4 NG/ML INDETERMINATE 3.4-5.4 NG/ML DEFICIENT LESS THAN 3.4 NG/ML ID Date Data Source [id number] 06/10/2020 12:08:00 PM EST [facility] Name Value Range Interpretation Code Description Data Shannon rce(s) Supporting Document(s) Thyrotropin [Units/volume] in Serum or Plasma 4.060 uIU/ML 0.358-3.74 0 [facility] ID Date Data Source [id number] 12/28/2019 12:00:00 AM EDT [facility] Ольга BARONE Patient Name: ELIUD [id number] [facility] Date of : 1940[place] [address] Date of Exam: 12/28/2019#: Fax: [phone] EXAM: [...] testing established by National Comprehensive[employer] Network and [employer] [employer] guidelines. She should pursue arisk [...] mammogram was read with the assistance of [employer], an FDAapproved computer aided detection system for [...] Current Smoker completed Curre nt Smoker eCW1 ([facility]) Smoking 04/22/2020 12:00:00 AM EST Current Smoker completed Curre nt Smoker eCW1 ([facility]) Smoking 04/22/2020 12:00:00 AM EST Current Smoker completed Curre nt Smoker eCW1 ([facility]) Smoking 04/22/2020 12:00:00 AM EST Current Smoker completed Curre nt Smoker eCW1 ([facility]) Smoking 04/22/2020 12:00:00 AM EST Current Smoker completed Curre nt Smoker eCW1 ([facility]) Smoking 09/24/2019 12:00:00 AM EDT Current Smoker completed Curre nt Smoker eCW1 ([facility]) Smoking 09/24/2019 12:00:00 AM EDT Current Smoker completed Curre nt Smoker eCW1 ([facility]) Smoking 09/24/2019 12:00:00 AM EDT Current Smoker completed Curre nt Smoker eCW1 ([facility]) Vital Signs ID Date Data Source UNK Name Value Range Interpretation Code Description Data Source(s) [place] body weight 125 [lb_av] 125 [lb_av] MEDEN T ([facility]) Body mass index (BMI) [Ratio] 25.0 kg/m2 25.0 k g/m2 [facility] Body weight 150.00 [lb_av] 150.00 [lb_av] BRADENEN T ([facility]) Body height 65 [in_i] 65 [in_i] [facility] 5'5" Respiratory rate 14 /min 14 /min [facility] ( [facility] Heart rate 78 /min 78 /min [facility] Diastolic blood pressure 80 mm[Hg] 80 mm[Hg] MEDENT ([facility]) Systolic blood pressure 120 mm[Hg] 120 mm[Hg] M EDENT ([facility]) Diastolic blood pressure 82 mm[Hg] 82 mm[Hg] eCW1 ([facility]) Systolic blood pressure 148 mm[Hg] 148 mm[Hg] e CW1 ([facility]) Body temperature 97.9 [degF] 97.9 [degF] eCW1 ( [facility]) Respiratory rate 18 /min 18 /min eCW1 ([facility]) Heart rate 73 /min 73 /min eCW1 ([facility]) Body mass index (BMI) [Ratio] 25.47 kg/m2 25.47 kg/m2 eCW1 ([facility]) Body height [in_i] eCW1 ([facility]) Body weight 153.1 [lb_av] 153.1 [lb_av] eCW1 ([facility]) Diastolic blood pressure 78 mm[Hg] 78 mm[Hg] eCW1 ([facility]) Systolic blood pressure 156 mm[Hg] 156 mm[Hg] e CW1 ([facility]) Body temperature 98.1 [degF] 98.1 [degF] eCW1 ( [facility]) Respiratory rate 18 /min 18 /min eCW1 ([facility]) Heart rate 76 /min 76 /min eCW1 ([facility]) Body mass index (BMI) [Ratio] 26.69 kg/m2 26.69 kg/m2 W1 ([facility]) Body height [in_i] eCW1 ([facility]) Body weight 160.4 [lb_av] 160.4 [lb_av] eCW1 ([facility]) Diastolic blood pressure 88 mm[Hg] 88 mm[Hg] eCW1 ([facility]) Systolic blood pressure 168 mm[Hg] 168 mm[Hg] e CW1 ([facility]) Body temperature 98.4 [degF] 98.4 [degF] eCW1 ( [facility]) Respiratory rate 18 /min 18 /min eCW1 ([facility]) Heart rate 84 /min 84 /min eCW1 ([facility]) Body mass index (BMI) [Ratio] 27.42 kg/m2 27.42 kg/m2 eCW1 ([facility]) Body height [in_us] eCW1 ([facility]) Body weight Measured 164.8 [lb_av] 164.8 [lb_av ] eCW1 ([facility]) Patient Treatment Plan of Care Planned Activity Planned Date Details Description Data Source (s) buspirone hydrochloride 7.5 MG Oral Tablet 05/19/2020 12:00:[address] eCW1 ([facility]) buspirone hydrochloride 7.5 MG Oral Tablet 05/19/2020 12:00:[address] eCW1 ([facility]) buspirone hydrochloride 7.5 MG Oral Tablet 05/19/2020 12:00:[address] eCW1 ([facility]) buspirone hydrochloride 7.5 MG Oral Tablet 05/19/2020 12:00:[address] eCW1 ([facility]) buspirone hydrochloride 7.5 MG Oral Tablet 05/19/2020 12:00:[address] eCW1 ([facility]) Test Strips - 06/30/2019 12:00:00 AM EST eCW1 ([facility]) Blood Glucose Test - 06/29/2019 12:00:00 AM EST eCW1 ([facility]) 24 HR Nicotine 0.875 MG/HR Transdermal Patch 05/28/2019 12:00:00 AM EST eCW1 ([facility]) 24 HR Nicotine 0.875 MG/HR Transdermal Patch 05/28/2019 12:00:00 AM EST eCW1 ([facility]) 24 HR Nicotine 0.875 MG/HR Transdermal Patch 05/28/2019 12:00:00 AM EST eCW1 ([facility]) 24 HR Nicotine 0.875 MG/HR Transdermal Patch 05/28/2019 12:00:00 AM EST eCW1 ([facility])
--- NOTE | 2020-06-26 15:17 | REP ---
INDICATION: Altered Mental Status. COMPARISON: Comparison MRI study of the brain 04 December 2011.. TECHNIQUE: Helical scanning is acquired. 5 mm axial images were reformatted. Coronal MPR images were generated. FINDINGS: Bone window settings demonstrate an intact bony calvarium. There is no evidence of skull fracture or incidental bony calvarial lesion. The visualized paranasal sinuses appear clear. No intraorbital abnormality is seen. On soft tissue window setting images; the lateral, third, and fourth ventricles are normal in size and position. Naik-white differentiation pattern is normal above and below the tentorium. There are is no evidence of intracranial hemorrhage. No mass, edema, infarction, or midline shift is seen. No extra-axial fluid collection is appreciated. There is generalized volume loss. Mild small vessel atherosclerotic changes are seen in the periventricular white matter of the frontal lobes bilaterally. IMPRESSION: No acute intracranial abnormality.. <Electronically signed by Eric Churchill > 06/26/20 [id number]
[2020-06-26 15:38] LABS: ALBUMIN 3.8 GM/DL (3.2-5.2); ALT/SGPT 18 U/L (12-78); BILIRUBIN,DIRECT 0.1 MG/DL (0.0-0.2); BILIRUBIN,TOTAL 0.3 MG/DL (0.2-1.0); BLOOD UREA NITROGEN 18 MG/DL (7-18); CALCIUM LEVEL 9.8 MG/DL (8.8-10.2); CARBON DIOXIDE LEVEL 31 MEQ/L (21-32); CHLORIDE LEVEL 100 MEQ/L (98-107); CK-MB VALUE MASS 2.1 NG/ML (<3.6); CPK CREATINE PHOSPHOKINASE 48 U/L (26-192); CREATININE FOR GFR 0.71 MG/DL (0.55-1.30); GLOMERULAR FILTRATION RATE > 60.0 (>39); GLUCOSE, FASTING 140 MG/DL (70-100); MB/CK RELATIVE INDEX 4.38 (< OR =4); POTASSIUM SERUM 3.7 MEQ/L (3.5-5.1); SODIUM LEVEL 140 MEQ/L (136-145); TOTAL PROTEIN 6.5 GM/DL (6.4-8.2); TROPONIN I < 0.02 NG/ML (< 0.10)
[2020-06-26 16:20] VITALS: BP 164/91
--- NOTE | 2020-06-26 20:52 | ECGEPIP ---
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
== END 2020-06-26 16:27 | disposition home or self-care (01) ==
LOC: M ED 14:03
DX: F41.1 Generalized anxiety disorder (principal); E11.9 Type 2 diabetes mellitus without complications; I10 Essential (primary) hypertension; Z85.3 Personal history of malignant neoplasm of breast; F32.9 Major depressive disorder, single episode, unspecified; F17.200 Nicotine dependence, unspecified, uncomplicated; Z79.84 Long term (current) use of oral hypoglycemic drugs; Z79.899 Other long term (current) drug therapy; Z88.2 Allergy status to sulfonamides
CPT/HCPCS: 70450; 71045; 80048; 80076; 82550; 82553; 84443; 84484; 85025; 93005; 93041; 94760; 96360; 99285; U0003

== ENCOUNTER → 2020-07-11 | Outpatient (CLI) | payer MEDICARE ==
[~2020-07-11] MED LIST changes: +GASTROGRAFIN SOLUTION 30ML (Q9963) As Ordered ONE; +ISOVUE-370 76% 100ML VIAL As Ordered ONE
--- NOTE | 2020-07-11 13:58 | REP ---
INDICATION: RUQ PAIN, WEIGHT LOSS, NAUSEA. COMPARISON: None TECHNIQUE: Axial contrast-enhanced images from the lung bases to the pubic symphysis using oral and 100 cc Isovue 370 intravenous contrast material. Precontrast and delayed images of the abdomen obtained along with coronal and sagittal reformations. This CT examination was performed using the following dose reduction techniques: Automated exposure control, adjustment of mA and/or kv according to the patient's size, and the use of iterative reconstruction technique. FINDINGS: Liver, spleen, pancreas, gallbladder, bilateral adrenal glands and kidneys are essentially normal. Incidental small renal cysts up to 10 mm noted. The enteric system demonstrates moderate fecal stasis and diffuse colonic and sigmoid diverticulosis. No obvious acute inflammatory process or diverticulitis noted. No bowel obstruction. No free air to suggest perforation. Pelvis demonstrates normal bladder and evidence for prior hysterectomy. Mildly prominent appearance to the residual cervical tissue may warrant pelvic ultrasound follow-up. No ascites. No free air. No intraperitoneal or retroperitoneal adenopathy. Abdominal aorta and vasculature demonstrate atherosclerotic changes without aneurysm or dissection. Musculoskeletal structures are intact and without acute osseous abnormality. Lung bases demonstrate chronic appearing changes. IMPRESSION: 1. No obvious acute abdominopelvic pathology appreciated. 2. Moderate fecal stasis along with colonic diverticulosis, but no evidence for bowel obstruction, acute infectious/inflammatory process, or diverticulitis. 3. Evidence for prior hysterectomy with prominent appearance of the cervical tissue may warrant pelvic ultrasound follow-up. 4. Further nonacute findings as described above. <Electronically signed by Dennis Bhandari > 07/11/20 [id number]
== END ==
LOC: M RAD 11:43
PROVIDERS: ATTEND Physician Assistant
DX: R10.821 Right upper quadrant rebound abdominal tenderness (principal); R11.0 Nausea; R63.4 Abnormal weight loss; R19.5 Other fecal abnormalities; Z90.79 Acquired absence of other genital organ(s)
CPT/HCPCS: 74178; Q9963; Q9967

== ENCOUNTER → 2020-11-22 | Outpatient (CLI) | payer MEDICARE ==
[~2020-11-22] MED LIST changes: -GASTROGRAFIN SOLUTION 30ML (Q9963) As Ordered ONE; -ISOVUE-370 76% 100ML VIAL As Ordered ONE; +OMEP40CA4 PO; -OMEP40CA97 PO
[2020-11-22 18:16] LABS: BLOOD UREA NITROGEN 15 MG/DL (7-18); CARBON DIOXIDE LEVEL 29 MEQ/L (21-32); CHLORIDE LEVEL 104 MEQ/L (98-107); CHOLESTEROL LEVEL 164 MG/DL (<200); CHOLESTEROL RISK RATIO 2.411 (<5); CREATININE FOR GFR 0.61 MG/DL (0.55-1.30); GLOMERULAR FILTRATION RATE > 60.0 (>39); GLUCOSE, FASTING 135 MG/DL (70-100); HDL CHOLESTEROL 68 MG/DL (>40); LDL CHOLESTEROL 70 MG/DL (<100); NON-HDL-C 96 MG/DL; POTASSIUM SERUM 3.7 MEQ/L (3.5-5.1); SODIUM LEVEL 141 MEQ/L (136-145); TRIGLYCERIDES LEVEL 128 MG/DL (<150)
[2020-11-22 21:29] LABS: HEMOGLOBIN A1c 6.2 %
== END ==
LOC: M PLALAB 14:47
PROVIDERS: ATTEND Physician Assistant
DX: E78.5 Hyperlipidemia, unspecified (principal); E11.9 Type 2 diabetes mellitus without complications
CPT/HCPCS: 36415; 80048; 80061; 83036; G0463

== ENCOUNTER → 2021-02-09 | Outpatient (CLI) | payer MEDICARE ==
--- NOTE | 2021-02-09 14:56 | REP ---
INDICATION: ENCTR SCREEN MAMMO W/LEFT BREAST MASTECTOMY. COMPARISON: Multiple TECHNIQUE: Digital screening mammography was carried out on the right breast in the CC and MLO projections using both 2D and 3D modalities and compared to the prior exams. The patient is status post left mastectomy. FINDINGS: The right breast is unchanged in size and shape. Once again, dense heterogenous nodular fibroglandular elements are seen throughout the right breast to such a degree that the sensitivity of the mammogram in detecting cancer is decreased. Stable benign appearing calcifications are again seen. Some of these are in groups but no one group is more suspicious than any other. There is no skin thickening or nipple retraction. There are no bambi soft tissue densities or spiculated masses. The Volpara volumetric breast density pattern is C. IMPRESSION: BIRADS/ACR category 2 benign findings. There is no evidence of malignant alteration of the right breast. This mammogram was interpreted with the aid of an FDA-approved computer-aided detection system. The patient states she had a clinical breast exam in over a year. The patient letter being requested is M1. RECOMMENDATION: Repeat screening mammography recommended 1 year (for women over 40). <Electronically signed by James Alvarado > 02/09/21 [id number]
== END ==
LOC: M WHC 13:21
PROVIDERS: ATTEND Physician Assistant
DX: Z12.31 Encounter for screening mammogram for malignant neoplasm of breast (principal)

== ENCOUNTER → 2021-07-13 | Outpatient (CLI) | payer MEDICARE ==
[2021-07-13 18:36] LABS: ALBUMIN 3.8 GM/DL (3.2-5.2); ALT/SGPT 29 U/L (12-78); BILIRUBIN,TOTAL 0.2 MG/DL (0.2-1.0); BLOOD UREA NITROGEN 18 MG/DL (7-18); CALCIUM LEVEL 9.7 MG/DL (8.8-10.2); CARBON DIOXIDE LEVEL 33 MEQ/L (21-32); CHLORIDE LEVEL 102 MEQ/L (98-107); CREATININE FOR GFR 0.62 MG/DL (0.55-1.30); GLOMERULAR FILTRATION RATE > 60.0 (>39); GLUCOSE, FASTING 58 MG/DL (70-100); POTASSIUM SERUM 3.7 MEQ/L (3.5-5.1); SODIUM LEVEL 140 MEQ/L (136-145); TOTAL PROTEIN 6.8 GM/DL (6.4-8.2)
[2021-07-13 18:37] LABS: TOTAL 25(OH) VITAMIN D 29.4 NG/ML (30.0-100.0)
[2021-07-13 19:55] LABS: HEMOGLOBIN A1c 5.8 %
== END ==
LOC: M PLALAB 14:51
PROVIDERS: ATTEND Nurse Practitioner Adult Health
DX: E11.9 Type 2 diabetes mellitus without complications (principal); Z13.29 Encounter for screening for other suspected endocrine disorder; Z13.21 Encounter for screening for nutritional disorder; Z79.899 Other long term (current) drug therapy

== ENCOUNTER → 2022-02-27 | Outpatient (CLI) | payer MEDICARE | LOC: M WHC 21:31 | PROVIDERS: ATTEND Nurse Practitioner Adult Health | DX: Z12.31 Encounter for screening mammogram for malignant neoplasm of breast (principal) ==

== ENCOUNTER → 2022-03-20 | Outpatient (CLI) | payer MEDICARE | LOC: M WHC 15:36 | PROVIDERS: ATTEND Nurse Practitioner Adult Health | DX: Z12.31 Encounter for screening mammogram for malignant neoplasm of breast (principal) ==

== ENCOUNTER → 2022-07-23 | Outpatient (CLI) | payer MEDICARE ==
[2022-07-23 16:48] LABS: ALBUMIN 3.8 G/DL (3.2-5.2); ALKALINE PHOSPHATASE 62 U/L (46-116); ALT/SGPT < 9 U/L (7.0-40); AST/SGOT 18 U/L (<34); BILIRUBIN,TOTAL 0.6 MG/DL (0.3-1.2); BLOOD UREA NITROGEN 14 MG/DL (9-23); CALCIUM LEVEL 9.6 MG/DL (8.3-10.6); CARBON DIOXIDE LEVEL 34 MMOL/L (20-31); CHLORIDE LEVEL 99 MMOL/L (98-107); GLOMERULAR FILTRATION RATE > 60.0 (>32); GLUCOSE, FASTING 98 MG/DL (74-106); POTASSIUM SERUM 3.5 MMOL/L (3.5-5.1); SODIUM LEVEL 141 MMOL/L (136-145); THYROID STIMULATING HORMONE 3.646 uIU/ML (0.55-4.78); TOTAL 25(OH) VITAMIN D 128.2 NG/ML (20.0-100.0); TOTAL PROTEIN 6.2 G/DL (5.7-8.2)
[2022-07-23 17:06] LABS: HEMOGLOBIN A1c 5.7 % (4.0-6.0)
== END ==
LOC: M PLALAB 13:59
PROVIDERS: ATTEND Nurse Practitioner Adult Health
DX: E03.9 Hypothyroidism, unspecified (principal); E11.9 Type 2 diabetes mellitus without complications; Z13.21 Encounter for screening for nutritional disorder; Z79.899 Other long term (current) drug therapy

== ENCOUNTER → 2022-11-19 | Outpatient (CLI) | payer MEDICARE ==
[2022-11-19 17:44] LABS: HEMOGLOBIN A1c 5.8 % (4.0-6.0)
[2022-11-19 17:56] LABS: ALBUMIN 3.7 G/DL (3.2-5.2); ALKALINE PHOSPHATASE 64 U/L (46-116); ALT/SGPT 16 U/L (7.0-40); AST/SGOT 15 U/L (<34); BILIRUBIN,TOTAL 0.4 MG/DL (0.3-1.2); BLOOD UREA NITROGEN 17 MG/DL (9-23); CALCIUM LEVEL 9.5 MG/DL (8.3-10.6); CARBON DIOXIDE LEVEL 34 MMOL/L (20-31); CHLORIDE LEVEL 100 MMOL/L (98-107); CREATININE FOR GFR 0.49 MG/DL (0.55-1.30); GLOMERULAR FILTRATION RATE > 60.0 (>32); GLUCOSE, FASTING 161 MG/DL (74-106); POTASSIUM SERUM 3.9 MMOL/L (3.5-5.1); SODIUM LEVEL 140 MMOL/L (136-145); THYROID STIMULATING HORMONE 1.123 uIU/ML (0.55-4.78); TOTAL PROTEIN 6.6 G/DL (5.7-8.2)
[2022-11-19 17:57] LABS: TOTAL 25(OH) VITAMIN D 99.3 NG/ML (20.0-100.0)
== END ==
LOC: M PLALAB 15:38
PROVIDERS: ATTEND Nurse Practitioner Adult Health
DX: E03.9 Hypothyroidism, unspecified (principal); E11.9 Type 2 diabetes mellitus without complications; Z13.21 Encounter for screening for nutritional disorder; Z79.899 Other long term (current) drug therapy

== ENCOUNTER → 2023-08-05 | Outpatient (CLI) | payer MEDICARE ==
[2023-08-05 19:16] LABS: HEMOGLOBIN A1c 5.8 % (4.0-6.0)
[2023-08-05 19:20] LABS: ALBUMIN 3.5 G/DL (3.2-5.2); ALKALINE PHOSPHATASE 76 U/L (46-116); ALT/SGPT 14 U/L (7.0-40); AST/SGOT 14 U/L (<34); BILIRUBIN,TOTAL 0.4 MG/DL (0.3-1.2); BLOOD UREA NITROGEN 13 MG/DL (9-23); CALCIUM LEVEL 9.8 MG/DL (8.3-10.6); CARBON DIOXIDE LEVEL 32 MMOL/L (20-31); CHLORIDE LEVEL 93 MMOL/L (98-107); CHOLESTEROL LEVEL 154 MG/DL (<200); CHOLESTEROL RISK RATIO 2.03 (<5); CREATININE FOR GFR 0.42 MG/DL (0.55-1.30); GLOMERULAR FILTRATION RATE > 60.0 (>32); GLUCOSE, FASTING 143 MG/DL (74-106); HDL CHOLESTEROL 75.6 MG/DL (>40); NON-HDL-C 78.4 MG/DL; POTASSIUM SERUM 4.1 MMOL/L (3.5-5.1); SODIUM LEVEL 134 MMOL/L (136-145); TOTAL PROTEIN 6.8 G/DL (5.7-8.2); TRIGLYCERIDES LEVEL 72 MG/DL (<150)
[2023-08-05 19:21] LABS: THYROID STIMULATING HORMONE 3.488 uIU/ML (0.55-4.78)
[2023-08-05 19:22] LABS: TOTAL 25(OH) VITAMIN D 94.9 NG/ML (20.0-100.0); VITAMIN B12 LEVEL 404 PG/ML (211-911)
== END ==
LOC: M PLALAB 15:52
PROVIDERS: ATTEND Nurse Practitioner Adult Health
DX: E03.9 Hypothyroidism, unspecified (principal); E11.9 Type 2 diabetes mellitus without complications; Z13.21 Encounter for screening for nutritional disorder; Z79.899 Other long term (current) drug therapy

== ENCOUNTER 2023-08-18 16:27 | Observation (INO) | payer MEDICARE ==
[~2023-08-18] VITALS: Ht 167.6 cm; Wt 49.9 kg
[2023-08-18 16:59] LABS: ABG BASE EXCESS -16.5 (-2.0-2.0); ABG HCO3 15.5 MMOL/L (22.0-26.0); ABG O2 SATURATION 98.9 % (95.0-99.0); ABG PARTIAL PRESSURE CO2 69.4 mmHg (35.0-45.0); ABG PARTIAL PRESSURE O2 243.7 mmHg (75.0-100.0); ABG STANDARD HCO3 11.9 MMOL/L. (22.0-26.0); ABG TOTAL CO2 17.6 MMOL/L (23.0-31.0); ABG pH (ARTERIAL) 6.966 UNITS (7.350-7.450)
[2023-08-18 17:00] LABS: HEMATOCRIT 34.2 % (36.0-47.0); HEMOGLOBIN 10.3 g/dl (12.0-15.5); MEAN CORPUSCULAR HEMOGLOBIN 27.2 pg (27.0-33.0); MEAN CORPUSCULAR HGB CONC 30.1 g/dl (32.0-36.5); MEAN CORPUSCULAR VOLUME 90.2 fl (80.0-96.0); PLATELET COUNT, AUTOMATED 356 10^3/uL (150-450); RED BLOOD COUNT 3.79 10^6/uL (4.00-5.40); WHITE BLOOD COUNT 17.1 10^3/uL (4.0-10.0)
[2023-08-18] MEDS: propofoL 1,000 MG in IV 1 EA IV SCH (17:02)
[2023-08-18] MEDS: DIGOXIN INJ 0.5 MG/2 ML AMP IV STA (17:20)
[2023-08-18] MEDS: NS 1,000 ML IV ONE (17:26)
[2023-08-18 17:33] LABS: ATYPICAL LYMPH 3 % (0-5); EOSINOPHILS 1 % (0-3); LYMPHOCYTES 36 % (16-44); MONOCYTES 3 % (0-5); NEUTROPHILS 55 % (28-66); PLATELET ESTIMATE NORMAL (NORMAL)
[2023-08-18] MEDS ORDERED: NOREPINEPHRINE 4MG/4ML AMP As Ordered ONE (17:36)
[2023-08-18 17:44] LABS: BLOOD UREA NITROGEN 12 MG/DL (9-23); CARBON DIOXIDE LEVEL 20 MMOL/L (20-31); CHLORIDE LEVEL 98 MMOL/L (98-107); CREATININE FOR GFR 0.47 MG/DL (0.55-1.30); GLOMERULAR FILTRATION RATE > 60.0 (>32); GLUCOSE, FASTING 287 MG/DL (74-106); POTASSIUM SERUM 4.1 MMOL/L (3.5-5.1); SODIUM LEVEL 137 MMOL/L (136-145)
[2023-08-18] MEDS: MIDAZOLAM 5MG/ML 1ML VIAL IV ONE (18:30)
[2023-08-18 19:00] VITALS: TEMP 97.2
[2023-08-18] MEDS ORDERED: [UNRECOGNIZED DRUG - REMARK] (19:23)
[2023-08-18] MEDS ORDERED: HOME MED LIST COMPLETE! XX SCH (19:25)
[2023-08-18] MEDS ORDERED: SCOPOLAMINE 1MG TRANSDERMAL PATCH TOP PRN (19:25)
[2023-08-18] MEDS ORDERED: HYOSCYAMINE SULFATE 0.125 MG SUBL TABLET PO PRN (19:25)
[2023-08-18] MEDS ORDERED: FLEET ENEMA PR PRN (19:25)
[2023-08-18] MEDS ORDERED: LORazepam 2 MG/ML 1ML VIAL IV PRN (19:25)
[2023-08-18] MEDS ORDERED: ONDANSETRON 4MG 2ML VIAL IV PRN (19:25)
[2023-08-18] MEDS ORDERED: MORPHINE 2 MG/ML 1ML VIAL IV PRN (19:25)
[2023-08-18] MEDS ORDERED: ACETAMINOPHEN 650MG SUPP PR PRN (19:25)
[2023-08-18 21:20] VITALS: BP 136/67
[2023-08-18 21:30] VITALS: O2SAT 56
[2023-08-18] MEDS ORDERED: EPINEPHrine 1MG/10ML SYRINGE 1.5IN ONE (21:31)
== END 2023-08-18 21:32 | disposition expired ==
LOC: M ED 17:28 → M ED INP 19:22 → CANRESERV 20:15 → ENRESERV 20:15
PROVIDERS: ADMIT Preventive Medicine Undersea and Hyperbaric Medicine; ATTEND Preventive Medicine Undersea and Hyperbaric Medicine
DX: I46.9 Cardiac arrest, cause unspecified (principal); T17.528A Food in bronchus causing other injury, initial encounter; Y92.098 Other place in other non-institutional residence as the place of occurrence of the external cause; J96.02 Acute respiratory failure with hypercapnia; J96.01 Acute respiratory failure with hypoxia; I48.91 Unspecified atrial fibrillation; R91.8 Other nonspecific abnormal finding of lung field; G31.83 Neurocognitive disorder with Lewy bodies; G20.A1 Parkinson's disease without dyskinesia, without mention of fluctuations; F02.80 Dementia in other diseases classified elsewhere, unspecified severity, without behavioral disturbance, psychotic disturbance, mood disturbance, and anxiety; E11.9 Type 2 diabetes mellitus without complications; D64.9 Anemia, unspecified; K21.9 Gastro-esophageal reflux disease without esophagitis; F41.0 Panic disorder [episodic paroxysmal anxiety]; F32.A Depression, unspecified; E78.00 Pure hypercholesterolemia, unspecified; I10 Essential (primary) hypertension; E03.9 Hypothyroidism, unspecified; M54.41 Lumbago with sciatica, right side; Z68.1 Body mass index [BMI] 19.9 or less, adult; Z85.3 Personal history of malignant neoplasm of breast; Z90.12 Acquired absence of left breast and nipple; Z90.710 Acquired absence of both cervix and uterus; Z74.1 Need for assistance with personal care; F17.200 Nicotine dependence, unspecified, uncomplicated; Z88.2 Allergy status to sulfonamides; Z88.8 Allergy status to other drugs, medicaments and biological substances; Z79.899 Other long term (current) drug therapy; Z79.84 Long term (current) use of oral hypoglycemic drugs; Z51.5 Encounter for palliative care
CPT/HCPCS: 36415; 36600; 51702; 71045; 80047; 80048; 82803; 84484; 85025; 92950; 93005; 93041; 94760; 96374; 99291; 99292; G0378; J0171; J1160; J2250